=== PATIENT | female | born 1935 | race Caucasian/White ===

== ENCOUNTER → 2020-05-12 08:38 | Outpatient (CLI) | payer MEDICARE, SELFPAY ==
--- NOTE | ~2020-05-12 | MMUS_ITS ---
EXAMINATION: MM diagnostic mammo unilat LT, US breast LT limited HISTORY: Six-month follow-up of probably benign multilocular up to 5.6 cm cyst at 3:00 4 cm from nipp le TECHNIQUE: 3-D tomosynthesis images of the left breast were performed and synthetic 2-D images were g enerated. CAD analysis was submitted and interpreted. High resolution targeted 3:00 left breast ultra sound was performed. COMPARISON: 08/23/2019 diagnostic left mammogram and limited left breast ultrasound examination BREAST PARENCHYMAL COMPOSITION: There are scattered areas of fibroglandular density. FINDINGS: MAMMOGRAPHIC FINDINGS: No significant interval change is noted of a low-density circumscribed opacity of approximately 5 mm dimension in the outer mid left breast. ULTRASOUND: At 3:00 there is a 3 x 5.5 mm circumscribed septated cyst, stable in appearance since 08/06/2019. IMPRESSION: 1. No mammographic evidence of malignancy 2. Routine mammographic screening is recommended BI-RADS Category 2: Benign finding(s). Reviewed, dictated and finalized at location A. IMPRESSION: 1. No mammographic evidence of malignancy 2. Routine mammographic screening is recommended BI-RADS Category 2: Benign finding(s).
== END ==
PROVIDERS: Visit Provider Family Medicine
DX: R92.8 Other abnormal and inconclusive findings on diagnostic imaging of breast (principal)
CPT/HCPCS: 76642; 77065

== ENCOUNTER → 2021-07-26 09:40 | Outpatient (CLI) | payer MEDICARE, SELFPAY ==
--- NOTE | ~2021-07-26 | MM_ITS ---
EXAMINATION: MM screening alecia BI w valentino HISTORY: Screening TECHNIQUE: Craniocaudal and mediolateral oblique 3-D tomosynthesis images were obtained and synthetic 2-D images were generated. CAD analysis was submitted and interpreted. COMPARISON: Comparison to multiple prior studies sequentially, with oldest reviewed study dated 06/07. BREAST PARENCHYMAL COMPOSITION: Breast composed of scattered areas of fibroglandular density. FINDINGS: The right breast is stable without evidence for malignancy. There is a developing asymmetry in the medial aspect of the left breast at approximately 9:00 position. IMPRESSION: 1. Developing left breast asymmetry. 2. Additional mammographic views and possible breast ultrasound are recommended. BI-RADS Category 0: Incomplete: Needs additional imaging evaluation. Reviewed, dictated and finalized at location A. IMPRESSION: 1. Developing left breast asymmetry. 2. Additional mammographic views and possible breast ultrasound are recommended . BI-RADS Category 0: Incomplete: Needs additional imaging evaluation.
--- NOTE | ~2021-07-26 | DEXA_ITS ---
Bone Density Report Name: Yasmine Diaz Age: 85 Sex: Female Ethnicity: White Date of : 1935 Indication: postmenopausal osteoporosis; height loss; Referring Provider: CHARLIE TEJADA Study: Bone densitometry was performed. Exam Date: July 26, 2021 Accession number: [id number] Bone Density: Region BMD T-score Z-score Classification AP Spine (L1-L4) 0.676 -3.4 -0.5 Osteoporosis Femoral Neck (Left) 0.579 -2.4 0.1 Osteopenia Total Hip (Left) 0.639 -2.5 -0.1 Osteoporosis Femoral Neck (Right) 0.534 -2.8 -0.3 Osteoporosis Total Hip (Right) 0.613 -2.7 -0.4 Osteoporosis Total Hip Mean 0.626 -2.6 -0.3 Osteoporosis World Health Organization criteria for BMD impression classify patients as: Normal (T-score at or above -1.0), Osteopenia (T-score between -1.0 and -2.5), or Osteoporosis (T-score at or below -2.5). 10-year Fracture Risk: FRAX not reported because: Some T-score for Spine Total or Hip Total or Femoral Neck at or below -2.5 Previous Exams: Region Exam Age BMD T-score BMD Change BMD Change Date g/cm2 vs Baseline vs Previous AP Spine(L1-L4) 07/26/2021 85 0.676 -3.4 -0.062* -0.071* 06/12/2019 83 0.747 -2.7 0.010 0.010 05/25/2016 80 0.738 -2.8 Total Hip(Left) 07/26/2021 85 0.639 -2.5 -0.068* -0.047* 06/12/2019 83 0.685 -2.1 -0.022 -0.022 05/25/2016 80 0.707 -1.9 Total Hip(Right) 07/26/2021 85 0.613 -2.7 -0.067* -0.024 06/12/2019 83 0.637 -2.5 -0.043* -0.043* 05/25/2016 80 0.680 -2.1 *Denotes significance at 95% confidence level, LSC for AP Spine = 0.022 g/cm2, LSC for Total Hip = 0.027 g/cm2 Clinical Information Provided by Patient: Patient maximum height was 63.75 Menopause Age: 55 Drinks caffeinated beverages Onset of menses at age 13 Number of children 2 Impression: The patient has osteoporosis, based on the Total Spine T-score. The BMD for the AP Spine(L1-L4) decreased, changing by -0.071 since the last DXA exam. The BMD for the Total Hip(Left) decreased, changing by -0.047 since the last DXA exam. Discussion: INCREASED RISK OF FRACTURE. BONE DENSITY IS UNDESIRABLY LOW AT ONE OR MORE SKELETAL SITES, CONSISTENT WITH POSTMENOPAUSAL OSTEOPOROSIS. This patient's lowest T-score meets the World Health Organization's (WHO) criteria for osteoporosis at one or more sites (T-score -2.5 or below). In
== END ==
PROVIDERS: PCP Family Medicine; Visit Provider Family Medicine
DX: Z12.31 Encounter for screening mammogram for malignant neoplasm of breast (principal); Z78.0 Asymptomatic menopausal state; M81.0 Age-related osteoporosis without current pathological fracture; Z85.3 Personal history of malignant neoplasm of breast; R92.8 Other abnormal and inconclusive findings on diagnostic imaging of breast; M85.852 Other specified disorders of bone density and structure, left thigh
CPT/HCPCS: 77063; 77067; 77080

== ENCOUNTER → 2021-08-23 08:10 | Outpatient (CLI) | payer MEDICARE, SELFPAY ==
--- NOTE | ~2021-08-23 | MMUS_ITS ---
EXAMINATION: MM diagnostic alecia LT w valentino, US breast LT limited HISTORY: Developing asymmetry reported in medial left breast at approximately 9:00 position on 021 screening mammogram TECHNIQUE: Additional 3-D tomosynthesis images of the left breast were performed and synthetic 2-D im ages were generated. CAD analysis was submitted and interpreted. High resolution targeted left 3:00 b reast ultrasound was performed. COMPARISON: 07/26/2021 bilateral screening mammogram 05/12/2020 diagnostic left mammogram and limited left breast ultrasound 08/06/2019 diagnostic left mammogram and limited left breast ultrasound FINDINGS: MAMMOGRAPHIC FINDINGS: No reproducible mass or architectural distortion is noted in the medial aspect of the left breast on these supplemental views. ULTRASOUND: 3:00: 3.5 x 5.2 x 5 mm septated benign-appearing cyst without internal vascularity or posterior shado wing. IMPRESSION: 1. Benign finding 2. Routine mammographic screening is recommended BI-RADS Category 2: Benign finding(s). Reviewed, dictated and finalized at location A. 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 Benign finding 2. Routine mammographic screening is recommended BI-RADS Category 2: Benign finding(s).
== END ==
PROVIDERS: PCP Family Medicine; Visit Provider Family Medicine
DX: R92.8 Other abnormal and inconclusive findings on diagnostic imaging of breast (principal)
CPT/HCPCS: 76642; 77061; 77065; G0279

== ENCOUNTER → 2023-08-01 12:46 | Outpatient (CLI) | payer MEDICARE, SELFPAY ==
--- NOTE | ~2023-08-01 | DEXA_ITS ---
Bone Density Report Name: JENNIFER BLOUNT Age: 88 Sex: Female Ethnicity: White Date of : 1935 Indication: postmenopausal osteoporosis; height loss; Referring Provider: Kvng Onofre Study: Bone densitometry was performed. Exam Date: August 01, 2023 Accession number: [id number] Bone Density: Region BMD T-score Z-score Classification AP Spine (L1-L4) 0.685 -3.3 -0.4 Osteoporosis Femoral Neck (Left) 0.568 -2.5 0.0 Osteoporosis Total Hip (Left) 0.610 -2.7 -0.4 Osteoporosis Femoral Neck (Right) 0.526 -2.9 -0.4 Osteoporosis Total Hip (Right) 0.598 -2.8 -0.5 Osteoporosis Total Hip Mean 0.604 -2.8 -0.5 Osteoporosis World Health Organization criteria for BMD impression classify patients as: Normal (T-score at or above -1.0), Osteopenia (T-score between -1.0 and -2.5), or Osteoporosis (T-score at or below -2.5). 10-year Fracture Risk: FRAX not reported because: Some T-score for Spine Total or Hip Total or Femoral Neck at or below -2.5 Previous Exams: Region Exam Age BMD T-score BMD Change BMD Change Date g/cm2 vs Baseline vs Previous AP Spine(L1-L4) 08/01/2023 88 0.685 -3.3 -0.053* 0.009 07/26/2021 85 0.676 -3.4 -0.062* -0.071* 06/12/2019 83 0.747 -2.7 0.010 0.010 05/25/2016 80 0.738 -2.8 Total Hip(Left) 08/01/2023 88 0.610 -2.7 -0.097* -0.029* 07/26/2021 85 0.639 -2.5 -0.068* -0.047* 06/12/2019 83 0.685 -2.1 -0.022 -0.022 05/25/2016 80 0.707 -1.9 Total Hip(Right) 08/01/2023 88 0.598 -2.8 -0.082* -0.014 07/26/2021 85 0.613 -2.7 -0.067* -0.024 06/12/2019 83 0.637 -2.5 -0.043* -0.043* 05/25/2016 80 0.680 -2.1 *Denotes significance at 95% confidence level, LSC for AP Spine = 0.022 g/cm2, LSC for Total Hip = 0.027 g/cm2 Clinical Information Provided by Patient: Patient maximum height was 63.75 Menopause Age: 55 Does not regularly consume dairy products Drinks caffeinated beverages Onset of menses at age 13 Number of children 2 Impression: The patient has osteoporosis, based on the Total Spine T-score. The BMD for the Total Hip(Left) decreased, changing by -0.029 since the last DXA exam. Discussion: INCREASED RISK OF FRACTURE. BONE DENSITY IS UNDESIRABLY LOW AT ONE OR MORE SKELETAL SITES, CONSISTENT WITH POSTMENOPAUSAL OSTEOPOROSIS. This adriel
--- NOTE | ~2023-08-01 | MM_ITS ---
EXAMINATION: MM screening alecia BI w valentino HISTORY: Screening TECHNIQUE: Craniocaudal and mediolateral oblique 3-D tomosynthesis images were obtained and synthetic 2-D images were generated. CAD analysis was submitted and interpreted. COMPARISON: Comparison to multiple prior studies sequentially, with oldest reviewed study dated 06/07. BREAST PARENCHYMAL COMPOSITION: There are scattered areas of fibroglandular density. FINDINGS: There is no evidence of suspicious mass, calcification, or architectural distortion to sugg est malignancy in either breast. There has been no suspicious interval change. IMPRESSION: 1. No mammographic evidence of malignancy. 2. Recommend routine screening mammography in one year. BI-RADS Category 1: Negative Reviewed, dictated and finalized at location A. AVER
== END ==
PROVIDERS: PCP Family Medicine; Visit Provider Physician Assistant
DX: Z12.31 Encounter for screening mammogram for malignant neoplasm of breast (principal); Z85.3 Personal history of malignant neoplasm of breast; M81.0 Age-related osteoporosis without current pathological fracture
CPT/HCPCS: 77063; 77067; 77080

== ENCOUNTER 2024-04-16 08:45 | Outpatient (RCR) | payer MEDICARE, SELFPAY | END 2024-04-23 09:27 | disposition home or self-care (01) | LOC: ANHCPREHAB 08:45 | PROVIDERS: PCP Family Medicine | DX: Z95.2 Presence of prosthetic heart valve (principal) | CPT/HCPCS: 93798 ==

== ENCOUNTER 2025-06-24 12:39 | Emergency (ER) | payer MEDICARE, SELFPAY ==
--- OUTSIDE RECORDS SUMMARY | 2001-10-13 19:00 | XMS_ITS | Continuity of Care Document ---
Author Organization [facility] Address [address] [place] [address] [place] [address] Phone Care Team Providers Care Box Spring Maker Name Role Phone [facility] Unavailable Unavail able Ela Bloom Unavailable Unavailable Advance Directives Directive Yes / No Effective Date File Name No Information Encounters Encounter Description Practice Location Reason(s) For Visit Diagnoses Date Provider Providers Copied on Encounter [facility], [id number] [place] [address] [address], [place], [place], [id number], [place] tel:[phone] [facility] No Information [address] [facility] [facility], [address], [place], [place], [id number] , [place]. [phone] Referring Provider: Francia Ryder MD L, [address] [facility], [place], [address]. tel:[phone] g Provider: Ela Bloom, [address] [place] [address], [address]. tel:[phone] Family History Family Member Type Diagnosis Age At Onset No Information Payers Payer name Insurance type Covered constitution party ID Authoriza tion(s) No Information Social History Type Description Quantity Date Captured Comments Sex Female Smoking Status No Information Chief Complaint And Reason For Visit No Information Reason For Referral Reason For Referral No Information History Of Present Illness Encounter Date Complaint History Of Prese nt Illness No Information Functional Status Date Functional Assessmen t No Information Instructions Date Instruction Additional Infor mation No Information Assessments Type Assessment Date No Information Patient Care Teams Name Effective Dates (start - stop) Status Members No Information
--- OUTSIDE RECORDS SUMMARY | 2013-03-05 05:50 | XMS_ITS | Continuity of Care Document ---
Author Organization [facility] Address [address] [place] [address] Phone Care Team Providers Care Recreation Aide Name Role Phone Nacho SPEAR, Guerita Unavailable Unavailabl e Allergies, Adverse Reactions, Alerts Substance Reaction Status Criticality No Known allergies Medications Medication Instructions Dosage Effective Dates (start - stop) Status Comments Claritin 10 mg Tab take 1 tablet (10MG) by oral routAM - Active Arimidex 1 mg Tab take 1 tablet (1MG) by oral route every day 1 MG - Active Effexor XR 37.5 mg 24 hr Cap take 1 capsule (37.5MG) by oral route every day with food 37.5 MG - No Longer Active Procedures Procedure Date OFFICE/OUTPATIENT VISIT EST OFFICE/OUTPATIENT VISIT, EST OFFICE/OUTPATIENT VISIT, EST OFFICE/OUTPATIENT VISIT, EST OFFICE/OUTPATIENT VISIT, NEW Advance Directives Directive Yes / No Effective Date File Name Resuscitation Not Answered N/A N/A Life Support Not Answered N/A N/A Intubation Not Answered N/A N/A Antibiotics Not Answered N/A N/A IV Fluid Support Not Answered N/A N/A Tube Feed Not Answered N/A N/A Other Directive N/A N/A WARNING:The information contained in this section is historical and is provided for information only and does not constitute a legal document or any assurance that the information is still accurate. Please verify the information with the osman of the legal document before using it for clinical purposes. Encounters Encounter Description Practice Location Reason(s) For Visit Diagnoses Date Provider Providers Copied on Encounter OFFICE/OUTPA TIENT VISIT EST [facility] , [address], [place], [address], [place] tel:[phone] [facility] swelling on her face (chief complaint) Angioneurotic edema, not elsewhere classified 2-201 3 Nacho Hamsa. [address], [place], [place], [id number]. tel:[phone] OFFICE/OUTPA TIENT VISIT, EST [facility] , [address], [place], [address], [place] tel:[phone] [facility] skin test for angioedema (chief complaint) Angioneurotic edema, not elsewhere classified 3- 2 Nacho Hamsa. [address], [place], [place], [id number]. tel:[phone] OFFICE/OUTPA TIENT VISIT, EST [facility] , [address], [place], [address], [place] tel:[phone] [facility] angioedema (chief complaint) Angioneurotic edema, not elsewhere classified 4-201 1 Nacho Hamsa. [address], [place], [place], [id number]. tel:[phone] OFFICE/OUTPA TIENT VISIT, EST [facility] , [address], [place], [address], [place] tel:[phone] [facility] swollen (chief complaint) Angioneurotic edema, not elsewhere classified 0-201 1 Nacho Hamsa. [address], [place], [place], [id number]. tel:[phone] OFFICE/OUTPA TIENT VISIT, NEW [facility] , [address], [place], [address], [place] tel:[phone] [facility] agioedema (chief complaint) Angioneurotic edema, not elsewhere classified 9-201 1 Nacho Hamsa. [address], [place], [place], [address]. tel:[phone] Family History Family Member Type Diagnosis Age At Onset No Information Payers Payer name Insurance type Covered constitution party ID Authormargarita barber(s) No Information Social History Type Description Quantity Date Captured Comments Alcohol Use Details Unknown Caffeine Use Details Unknown Tobacco Use Status No Information Smoking Status Never smoker Non-Smoking Tobacco Use Details : No Details Available : No Details Available Sex Female Vital Signs Date / Time: Height Weight BMI Pulse Rate Blood Pressure Temperature Respiratory Rate Body Surface Area Head Circumference Head Circ. Percentile Wt./David. Percentile BMI percentile Pulse Ox Inhaled Ox 10:50 AM 63.00 in 162.00 lbs 28.6 9 kg/m eter (2) 99 /min 130/68 mm[Hg] 97.90 F 95 % Chief Complaint And Reason For Visit From encounter dated '03/05/2013 10:50'. swelling on her face (chief complaint) Reason For Referral Reason For Referral No Information History Of Present Illness Encounter Date Complaint History Of Prese nt Illness No Information Functional Status Date Functional Assessmen t No Information Instructions Date Instruction Additional Infor mation No Information Assessments Type Assessment Date No Information Mental Status Date Cognitive Assessment Orientation - [place] ed to time, place, person, situation. Patient Care Teams Name Effective Dates (start - stop) Status Members No Information
--- NOTE | ~2025-06-24 | CT_ITS ---
EXAMINATION: CT facial bones w con DATE: 06/24/2025 15:28 INDICATION: Left facial pain TECHNIQUE: Computed tomography (CT) of the facial bones and maxillofacial region was performed with 100 mL Omnipaque-350 intravenous contrast. Coronal reconstructions were obtained. Automated exposure control and iterative reconstruction technique were employed. The dose-length product was 282.73 mGy-c m. COMPARISON: None. FINDINGS: No maxillofacial fractures. Specifically the nasal bones, zygomatic arches, mandible and damon of the orbits and paranasal sinuses are all intact. Nasal septum is midline. Postoperative change of prior left mastoidectomy which includes resection of the posterior most portion of the temporal bone overlying the sigmoid sinus. Small effusion in some of the posterior inferior most residual left mastoid air cells. No left middle ear effusion. The right mastoid air cells and middle ear cavities are clear. Paranasal sinuses are clear. Changes of bilateral intraocular lens replacement. Small amount of nonhe modynamically significant atherosclerotic calcification at the bilateral carotid siphons. Visualized cervical vasculature is unremarkable with patent bilateral A1 and P1 segments. Symmetric prominence of the sulci consistent with mild age- appropriate diffuse cerebral volume loss. Bilateral parotid and submandibular glands as well as the visualized thyroid appears normal. No or abnormally enhancing lesions, masses or fluid collections identified. Severe cervical spondylosis with chronic appearing mild anterior wedging at C5. IMPRESSION: 1. Status post left mastoidectomy and bilateral intraocular lens replacement. Otherwise unremarkable maxillofacial CT. Reviewed, dictated and finalized at location A. IMPRESSION: 1. Status post left mastoidectomy and bilateral intraocular lens replacement. O therwise unremarkable maxillofacial CT.
--- NOTE | ~2025-06-24 | CT_ITS ---
EXAMINATION: CT brain wo kiera, 06/24/2025 15:05 CDT HISTORY: Left facial pain COMPARISON: No comparisons available. Technique: Axial images obtained of the brain without contrast. One or more of the following dose reduction techniques were used: automated exposure control, adjustment of the mA and/or kV according to patient size, use of iterative reconstruction technique. Findings: No acute infarct or parenchymal hemorrhage. No abnormal mass or mass effect. No midline shift. No extra-axial fluid collections. No hydrocephalus. The left mastoid air cells demonstrates sequelae of previous surgery, the right mastoid air cells appear unremarkable Sinuses and orbits unremarkable. No acute fracture. No significant facial or scalp soft tissue swelling evident. No radiopaque foreign body is seen. Impression: 1.No acute intracranial abnormality. Reviewed, dictated and finalized at location P. Impression: 1.No acute intracranial abnormality.
--- OUTSIDE RECORDS SUMMARY | 2025-06-24 12:43 | XMS_ITS | Clinical Summary ---
Author Organization [facility] [address] Address [address] [facility] [place] [address] Care Team Providers Care Floorperson Name Role Phone Gina Delacruz MD Primary Care Provider + Leighton Ramirez MD Unavailable [phone] Le Mendoza MD Unavailable [phone] Allergies Active Allergy Reactions Criticality Noted Date Comments House Dust Unknown 05/26/2021 Mite Extract Unknown 05/26/2021 Raspberry Rash Medium Medications aspirin 81 mg chewable tablet Take 1 tablet (81 mg total) by mouth daily 30 tablet 11 4 Active amLODIPine (NORVASC) 2.5 mg tablet Take 1 tablet (2.5 mg total) by mouth daily Active amoxicillin-cla vulanate (AUGMENTIN) 875-125 mg per tablet Take 1 tablet (875 mg of amoxicillin total) by mouth 2 (two) times a day for 7 days 14 tablet 5 06/27/20 25 Active Active Problems Problem Noted Date Diagnosed Date Status post transcatheter ao rtic valve replacement (TAVR) using bioprosthesis 12/24/2023 Assessment & Plan (12/18/2024 2:23 PM CDT): S/p TAVR 1 year ago. The valve is functioning well. No additional TAVR follow up scheduled Assessment & Plan (01/29/2024 10:27 AM CDT): S/p TAVR 1 month ago. The valve is functioning well. We will plan to see the patient back for a 1 year TAVR follow up. Encounter for examination fo r normal comparison and control in clinical research program 12/07/2023 Nonrheumatic aortic valve stenosis 05/26/2021 WALTER (dyspnea on exertion) 05/26/2021 Fatigue due to excessive exertion 05/26/2021 Syncope and collapse 05/26/2021 Pseudophakia of both eyes 04/04/2021 Assessment & Plan (02/29/2024 2:26 PM CDT): Patient was educated on the intraocular lens (IOL) status. Follow. Cont with current glasses Rx Assessment & Plan (01/11/2023 9:35 AM CDT): Open capsules, good vision, monitor Assessment & Plan (01/05/2022 9:38 AM CDT): Open capsules, good vision, monitor Assessment & Plan (04/04/2021 11:27 AM CDT): Centered and stable, monitor Bilateral posterior capsular opacification 04/04 Assessment & Plan (05/09/2021 2:58 PM CDT): S/p YAG OU Doing well MRx to 20/20 today Follow [address] Rizvi Assessment & Plan (04/14/2021 12:58 PM CDT): PCO referral from Dr. 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 Medical [facility] Cardiology [address] [place] [address] Stanford Senior MD PhD 06/05/2025 8:40 AM CDT - 06/05/2025 9:45 AM CDT Surgery [facility] Heart [address] [address] Jeffrey Cotton MD Intracardiac Echo Primary Procedure 06/05/2025 7:23 AM CDT - 06/05/2025 4:15 PM CDT Hospital Encounter [facility] Heart [address] [address] Jeffrey Cotton MD Nonrheumatic aortic valve stenosis Discharge Disposition: Discharge to home or self care 04/28/2025 8:05 AM CDT Anesthesia Event [facility] Heart [address] [address] Buddy Gordillo MD 04/28/2025 6:46 AM CDT - 04/28/2025 11:59 PM CDT Hospital Encounter [facility] Center [address] [place] [phone] Bronson Fulton MD Nonrheumatic aortic valve stenosis (Primary Dx) Discharge Disposition: Discharge to home or self care 04/28/[address] [facility] Medical Group Cardiology [address] [place] [address] Bronson Fulton MD sched ICE 04/27/2025 Documentation [facility] [address] [place] [phone] Rabia Hogan, EFE from Last 3 Months Immunizations Immunization Administration Dates Next Due Influenza, Trivalent, IM (MDV) 06/23/2010 Surgical History Surgery Date Site/Laterality Comments TONSILLECTOMY Tonsillectomy BREAST BIOPSY 09/24/1993 - 09/23/1994 Right IDC BREAST LUMPECTOMY 09/24/1993 - 09/23/1994 Right with SLN CRANIECTOMY FOR EXCISION OF ACOUSTIC NEUROMA EYE SURGERY CATARACT EXTRACTION CARDIAC CATHETERIZATION 11/13/2023 TRANSCATHETER AORTIC VALVE REPLACEMENT 20 Frank CARDIAC ELECTROPHYSIOLOGY PROCEDURE 06/05/2025 N/A Procedure: Intracardiac Echo Primary Procedure; Surgeon: Jeffrey Cotton MD; Location: [facility]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 Family History Medical History Relation Name Comments Coronary artery disease Father Rodríguez nary artery disease; Cause of : Coronary artery disease Prostate cancer Father Cancer -pros verdin; Cataracts Mother Hypertension Mother Hypertension; Other Mother Pulmonary fibro sis; Cause of : Pulmonary fibrosis Other Other 1 Family history of Descent - Western/Northern Eur; Other Other 2 Family history of Descent - Western/Northern Eur; Blindness Neg Hx Relation Name Status Comments Father (Age 100) Mother (Age 83) Other 1 Other 2 Social History Tobacco Use Types Packs/Day Years Used Date Smoking Tobacco: Never Smokeless Tobacco: Never Tobacco Cessation:Counseling Given: No Alcohol Use Standard Drinks/Week Comments Yes 0 (1 standard drink = 0.6 oz pur e alcohol) Personal Safety Answer Date Recorded Have you ever been in or are you currently in a harmful physical or emotional relationship or is someone making you feel afraid or unsafe? 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 Gender Identity Not on file Sexual Orientation Not on file Obstetrics History Last Filed Vital Signs Vital Sign Reading Time Taken Comments Blood Pressure 121/57 06/05/2025 12:00 PM CDT Pulse 69 06/05/2025 12:00 PM CDT Temperature 36.5 C (97.7 F) 04/28/2025 8:28 AM CDT Respiratory Rate 26 06/05/2025 11:30 AM CDT Oxygen Saturation 100% 06/05/2025 12:00 PM CDT Inhaled Oxygen Concentration - - Weight 60.3 kg (133 lb) 06/05/2025 7:57 AM CDT Height 160 cm (5' 3) 06/05/2025 7:57 AM CDT Body Mass Index 23.56 06/05/2025 7:57 AM CDT Plan of Treatment Health Maintenance Due Date Last Done Comments Depression Screening 1935 Hepatitis B Screening 1953 Well Visit 65+ 2000 DTaP/Tdap/Td Vaccine (1 - Tdap) 10/03/2012 3 Osteoporosis Screening-Bone Density Scan 04/16/2015 04/16/2013 Influenza Vaccine (#1) 2025 , 07/20/2020, 06/04/2019, Additional history exists Fall Risk Assessment 04/28/2026 04/28/2025 Pneumococcal vaccine 65+ Completed 06/26/2017, 10/26 Zoster Vaccine Completed 05/03/2019, 01/22, 06/24/2014 Medical Devices Implanted Type Area Ramp Supervisor Device Identifier Shelf Expiration Date Model / Serial / Lot Frank [employer] Valve Heart 20mm Gary 3 Transcatheter [id number] - [id number] - [id number] Implanted:Qty: 1 on 12/20/2023 by Jeffrey Cotton MD at [facility] Prosthetic Valve N/A: Aortic Valve Frank [employer] 07/30/2026 [id number] / [id number] / [id number] [employer] Device Vascular Closure Femoral Artery Bioabsorbable Dual Method Vascade 6-7fr Collagen [id number] - S0 - [id number] Implanted:Qty: 1 on 11/13/2023 by Jeffrey Cotton MD at [facility] Vascular Closure Device Right: Femoral Vein [employer] 06/28/2025 [id number] / 0 / [id number] Cordis Mynxgrip 5fr Balloon Catheter Integrate Sealant Lock Latex Free [id number] - S0 - [id number] Implanted:Qty: 1 on 11/13/2023 by Jeffrey Cotton MD at [facility] Vascular Closure Device Right: Femoral Cordis 09/23/2025 [id number] / [id number] / [id number] [employer] 18f Manta Vascular Closure Device 2115 - [id number] - [id number] Implanted:Qty: 1 on 12/20/2023 by Jeffrey Cotton MD at [facility] Vascular Closure Device N/A: Aortic Valve [employer] Inc 01/01/20255 / [id number] / [id number] [employer] Device 5fr Closure Celt Acd Vascular Sterile Latex Free Disposable Bryce Kclt-05 - [id number] - [id number] Implanted:Qty: 1 on 12/20/2023 by Jeffrey Cotton MD at [facility] Vascular Closure Device N/A: Aortic Valve [employer]TD 06/27/2026 KCLT-05 / [id number] / [id number] Bourne Vascular System Closure Repair Femoral Artery Suture Mediated Perclose Prostyle [id number] - S0 - [id number] Implanted:Qty: 1 on 06/05/2025 by Jeffrey Cotton MD at [facility] Vascular Closure Device Right: Femoral [employer]ne [employer] 04/23/2027 [id number] / [id number] / [id number] Procedures Procedure Name Priority Date/Time Associated Diagnosis Comments INTRACARDIAC ECHO PRIMARY PROCEDURE Routine 06/05/2025 9:05 AM CDT Nonrheumatic aortic valve stenosis EGFR STAT 06/05/2025 7:47 AM CDT DIFFERENTIAL AUTO STAT 06/05/2025 7:4 7 AM CDT PROTIME-INR STAT 06/05/2025 7:47 AM CDT CBC WITH AUTO DIFFERENTIAL STAT 06/05/2025 7:47 AM CDT BASIC METABOLIC PANEL STAT 06/05/2025 7:47 AM CDT TRANSESOPHAGEAL ECHO (LAILA) WO DOPPLER/CF W CARDIOVERSION W CONTRAST Routine 04/28/2025 8:44 AM CDT Nonrheumatic aortic valve stenosis TRANSESOPHAGEAL ECHO (LAILA) WO DOPPLER/CF W CARDIOVERSION Routine 04/28/2025 8:44 AM CDT Nonrheumatic aortic valve stenosis TRANSESOPHAGEAL ECHO (LAILA) W LTD DOPPLER/CF W CARDIOVERSION W CONTRAST Routine 04/28/2025 8:44 AM CDT Nonrheumatic aortic valve stenosis TRANSESOPHAGEAL ECHO (LAILA) W LTD DOPPLER/CF W CARDIOVERSION Routine 04/28/2025 8:44 AM CDT Nonrheumatic aortic valve stenosis TRANSESOPHAGEAL ECHO (LAILA) W DOPPLER/CF W CARDIOVERSION W CONTRAST Routine 04/28/2025 8:44 AM CDT Nonrheumatic aortic valve stenosis TRANSESOPHAGEAL ECHO (LAILA) W DOPPLER/CF W CARDIOVERSION Routine 04/28/2025 8:44 AM CDT Nonrheumatic aortic valve stenosis DEXA AXIAL SKELETON BONE DENSITY 1 OR MORE SITES Routine 04/16/2013 12:26 PM CDT from Last 3 Months or Most Recently Relevant to Health Maintenance Results * INTRACARDIAC ECHO PRIMARY PROCEDURE (06/05/2025 9:05 AM CDT) Anatomical Region Laterality Modality X-Ray Angiograph y Narrative 06/05/2025 9:12 AM CDT Images from the original result were not included. [facility] Cardiology [facility] [facility], [id number], [address] Intracardiac Echocardiogram Procedure Report 89 y.o. year old female with aortic perivalvular leak referred for intracardiac echocardiogram. Attending physicians: Jeffrey Cotton MD Access: 10F RFV Catheter: ICE Injection:None Closure:Perclose Anticoagulation:None Air Kerma:7 mGy Fluoro time:1.3 min Contrast: None Sedation:1mg Versed, 25mcg Fentanyl Estimated blood Loss: minimal Preprocedural Diagnosis: Aortic perivalvular regurgitation Postprocedural Diagnosis: Aortic perivalvular regurgitation, tricuspid regurgitation, mitral regurgitation Procedural details: After risks, benefits, and alternatives to the procedure were explained to the patient, they agreed to proceed. After signing informed consent the patient was brought to the cardiac catheterization laboratory/hybrid OR. They were prepped and draped in sterile fashion. A 10F sheath was inserted into the right femoral vein using the modified Seldinger technique, micropuncture access, and ultrasound guidance. This was was preclosed with one Perclose device. We then advanced the ICE catheter. Findings: Left ventricle: Grossly normal ejection fraction 55% Right ventricle: Grossly normal function Aortic valve: Normal bioprosthetic aortic valve with moderate to severe perivalvular leak Mitral valve: Moderate regurgitation Tricuspid valve: Moderate to severe regurgitation Pulmonic valve: Not well visualized Left atrial appendage: No evidence of thrombus Atrial septum: Intact Pericardium: Normal, no pericardial effusion The system was removed and the access site was closed with the perclose sutures. There was no pericardial effusion noted at end of case. A/P: Successful ICE evaluation. We will review with heart team to determine next steps. Jeffrey Cotton MD 06/05/25 9:08 AM us Jeffrey Cotton MD CV CARDIAC CATH PROCEDURES Final Result * eGFR (06/05/2025 7:47 AM CDT) eGFR 84 >=60 mL/min/1. 73 m2 Comment: Interpretive Data Reference Interval Normal >/= 90 mL/min/1.73m2 Mildly decreased* 60 - 89 mL/min/1.73m2 Mildly to moderately decreased 45 - 59 mL/min/1.73m2 Moderately to severely decreased 30 - 44 mL/min/1.73m2 Severely decreased 15 - 29 mL/min/1.73m2 Kidney Failure < 15 mL/min/1.73m2 *Relative to young adult level Estimated glomerular filtration rate is determined by the 2020 CKD-EPI equation recommended by the National Kidney Foundation (A Unifying Approach to GFR Estimation: Recommendations of the NKF-ASK Task Force on Reassessing the Inclusion of Race in Diagnosing Kidney Disease, JASN 2020). The CKD-EPI equation should not be used for patients with unstable renal function and has not been validated in children and those over 70. Current interpretive data was last reviewed 2021. Blood 06/05/2025 7:47 AM CDT 06/05/2025 7:57 AM CDT us Jeffrey Cotton MD LAB BLOOD ORDERABLES Final Resul t [facility] [address] Department [place] [address] * (ABNORMAL) Differential, auto (06/05/2025 7:47 AM CDT) Pathologist [facility] Neutrophil abs 3.47 1.50 - 6.50 K/cumm Imm gran abs 0.02 0.00 - 0.10 K/cumm [facility] Lymphocyte abs 0.77(L) 0.80 - 3.30 K/cumm [facility] Monocyte abs 0.47 0.20 - 0.80 K/cumm [facility] Eosinophil abs 0.14 0.00 - 0.50 K/cumm [facility] Basophil abs 0.07 0.00 - 0.10 K/cumm [facility] Neutrophil pct 70.3 % [facility] Comment: Interpretive Data Percent cell count reference ranges are not reported, since discordance with absolute values may lead to misinterpretation of CBC data. Current Interpretive Data was last revised on 2018. Imm gran pct 0.4 % [facility] Comment: Interpretive Data Percent cell count reference ranges are not reported, since discordance with absolute values may lead to misinterpretation of CBC data. Current Interpretive Data was last revised on 2018. Lymphocyte pct 15.6 % [facility] Comment: Interpretive Data Percent cell count reference ranges are not reported, since discordance with absolute values may lead to misinterpretation of CBC data. Current Interpretive Data was last revised on 2018. Monocyte pct 9.5 % [facility] Comment: Interpretive Data Percent cell count reference ranges are not reported, since discordance with absolute values may lead to misinterpretation of CBC data. Current Interpretive Data was last revised on 2018. Eosinophil pct 2.8 % [facility] Comment: Interpretive Data Percent cell count reference ranges are not reported, since discordance with absolute values may lead to misinterpretation of CBC data. Current Interpretive Data was last revised on 2018. Basophil pct 1.4 % [facility] Comment: Interpretive Data Percent cell count reference ranges are not reported, since discordance with absolute values may lead to misinterpretation of CBC data. Current Interpretive Data was last revised on 2018. Blood 06/05/2025 7:47 AM CDT 06/05/2025 7:57 AM CDT us Jeffrey Cotton MD LAB BLOOD ORDERABLES Final Resul t [facility] [address] Department [place] [address] * (ABNORMAL) CBC with auto differential (06/05/2025 7:47 AM CDT) WBC 4.94 3.80 - 9.90 K/cumm Hgb 13.5 11.9 - 15.5 g/dL [facility] Hct 42.8 35.6 - 45.5 % [facility] Plt 190 150 - 400 K/cumm [facility] MPV 11.2 9.1 - 12.3 fL [facility] RBC 4.65 3.90 - 5.20 M/cumm [facility] MCV 92.0 81.3 - 96.4 fL [facility] MCH 29.0 27.1 - 33.3 pg [facility] MCHC 31.5(L) 32.3 - 35.7 g/dL [facility] RDW CV 13.2 11.1 - 14.9 % [facility] RDW SD 44.7 35.7 - 48.1 fL [facility] NRBC abs 0.00 0.00 - 0.01 K/cumm [facility] Blood 06/05/2025 7:47 AM CDT 06/05/2025 7:57 AM CDT us Jeffrey Cotton MD LAB BLOOD ORDERABLES Final Resul t Performing Organization Address City/[facility] Co de Phone Number [facility] [address] Department [place] [address] * Protime-INR (06/05/2025 7:47 AM CDT) PT 11.4 10.2 - 13.5 sec INR 1.01 0.90 - 1.20 [facility] Comment: Interpretive data Oral anticoagulant therapeutic ranges: Venous thromboembolism prophylaxis or treatment: 2.0-3.0 CARDIOLOGY Standard range: 2.0-3.0 High-intensity range: 2.5-3.5 Refer to indication-specific guidelines for appropriate target ranges for prosthetic heart valve replacement. Current interpretive data was last revised on 2019. Blood 06/05/2025 7:47 AM CDT 06/05/2025 7:57 AM CDT us Jeffrey Cotton MD LAB BLOOD ORDERABLES Final Resul t Performing Organization Address City/[facility]/ZIP Co de Phone Number [facility] [address] Department [place] [address] * Basic metabolic panel (06/05/2025 7:47 AM CDT) Sodium 141 135 - 145 mmol/L Potassium, pl 3.8 3.3 - 4.9 mmol/L [facility] Chloride 104 97 - 110 mmol/L [facility] CO2 24 22 - 32 mmol/L [facility] Anion gap 13 2 - 15 mmol/L [facility] BUN 21 6 - 25 mg/dL [facility] Creatinine 0.65 0.60 - 1.10 mg/dL [facility] Glucose 97 70 - 199 mg/dL [facility] Comment: Interpretive Data Fasting glucose >/= 126 mg/dl is diagnostic for diabetes. Fasting is defined as no caloric intake for at least 8 hours. Fasting glucose between 100 mg/dl to 125 mg/dl is diagnostic of prediabetes. In a patient with classic symptoms of hyperglycemia or hyperglycemic crisis, a random glucose >/= 200 mg/dl is diagnostic for diabetes. In the absence of unequivocal hyperglycemia, results should be confirmed by repeat testing. The classification and Diagnosis of Diabetes Diabetes Care 2021; 46: S19-S40. Current interpretive data was last revised 2022. Calcium 10.0 8.5 - 10.3 mg/dL [facility] Blood 06/05/2025 7:47 AM CDT 06/05/2025 7:57 AM CDT Jeffrey Cotton MD LAB BLOOD ORDERABLES Final [facility]ul [facility] [address] Department [place] [address] * TRANSESOPHAGEAL ECHO (LAILA) W DOPPLER/CF W CARDIOVERSION, TRANSESOPHAGEAL ECHO (LAILA) W DOPPLER/CF W CARDIOVERSION W CONTRAST, TRANSESOPHAGEAL ECHO (LAILA) W LTD DOPPLER/CF W CARDIOVERSION, TRANSESOPHAGEAL ECHO (LAILA) W LTD DOPPLER/CF W CARDIOVERSION W CONTRAST, TRANSESOPHAGEAL ECHO (LAILA) WO DOPPLER/CF W CARDIOVERSION, TRANSESOPHAGEAL ECHO (LAILA) WO DOPPLER/CF W CARDIOVERSION W CONTRAST (04/28/2025 8:44 AM CDT) Anatomical Region Laterality Modality Echocardiography Narrative 04/28/2025 8:44 AM CDT Bronson Fulton MD 04/28/2025 8:49 AM Transesophageal Echocardiogram (LAILA) Date/Time: 04/28/2025 8:44 AM Performed by: Bronson Fulton MD Authorized by: Bronson Fulton MD us Bronson Fulton MD CV ECHO PROCEDURES Vidya l Result * DEXA Axial Skeleton Bone Density Multi Site (04/16/2013 12:26 PM CDT) Anatomical Region Laterality Modality Body N/A Radiographic Cheri ging 04/16/2013 12:2 6 PM CDT Narrative 04/16/2013 1:21 PM CDT Bone mineral density [facility] Clinical History: Postmenopausal female currently taking calcium and vitamin D. DXA BMD was done at [facility] on a Closely CI. Precision testing at this site has resulted in a least significant change of: Lumbar spine 0.035 g/sq cm Hip 0.025 g/sq cm BMD L1-L4 is 0.794 g/sq cm corresponding to a T score of -2.3. BMD left femoral neck is 0.629 g/sq cm corresponding to a T score of -2.0. BMD total left hip is 0.719 g/sq cm corresponding to a T score of -1.8. COMPARISON: When comparison is made with prior bone densitometry dated 03/11/2009, there has been 5.6 percent interval decrease in total bone mineral density of the lumbar spine and 8 percent interval increase in total bone mineral density of the left hip. IMPRESSION: Low bone mass (osteopenia) which depending on the clinical circumstances may result in a moderate increased risk of fragility fracture. If followup is to be done, for technical reasons, it should be performed on this same machine. Radiologist: CESILIA TENORIO M.D. Attending: TEOFILO JONES M.D. Requesting: TEOFILO JONES M.D. Requesting Completed Time: 04/16/2013 12:26 AM Dictated Time: 04/16/2013 1:17 PM Transcribed Time: 04/16/2013 1:21 PM Signed by: CESILIA TENORIO M.D. on 04/16/2013 1:21 PM Procedure Note Provider, MD Rhonda - 01/17/2017 Bone mineral density [facility] Clinical History: Postmenopausal female currently taking calcium and vitamin D. DXA BMD was done at [facility] on a Closely CI. Precision testing at this site has resulted in a least significant change of: Lumbar spine 0.035 g/sq cm Hip 0.025 g/sq cm BMD L1-L4 is 0.794 g/sq cm corresponding to a T score of -2.3. BMD left femoral neck is 0.629 g/sq cm corresponding to a T score of -2.0. BMD total left hip is 0.719 g/sq cm corresponding to a T score of -1.8. COMPARISON: When comparison is made with prior bone densitometry dated 03/11/2009, there has been 5.6 percent interval decrease in total bone mineral density of the lumbar spine and 8 percent interval increase in total bone mineral density of the left hip. IMPRESSION: Low bone mass (osteopenia) which depending on the clinical circumstances may result in a moderate increased risk of fragility fracture. If followup is to be done, for technical reasons, it should be performed on this same machine. Radiologist: CESILIA TENORIO M.D. Attending: TEOFILO JONES M.D. Requesting: TEOFILO JONES M.D. Requesting Completed Time: 04/16/2013 12:26 AM Dictated Time: 04/16/2013 1:17 PM Transcribed Time: 04/16/2013 1:21 PM Signed by: CESILIA TENORIO M.D. on 04/16/2013 1:21 PM Historical Provider MD LUND DXA PROCEDURES Final Result from Last 3 Months or Most Recently Relevant to Health Maintenance Insurance T MEDICARE T MEDICARE T MEDICARE Advance Directives For more information, please contact: [phone] * Full Code (Latest Code Status on File) Date Activated Date Inactivated Comments 12/20/2023 8:12 AM 12/21/2023 8:12 PM * Full Code Date Activated Date Inactivated Comments 11/13/2023 12:01 PM 11/13/2023 7:23 PM Healthcare Agents on File Name Relationship Healthcare Agent Relationship Communication Cinthya Bowden Daughter Health Care Agent Care Teams Floorperson Relationship Specialty Start Date End Date Gina Delacruz MD PCP - General Family Medicine 04/11/18 Leighton Ramirez MD [address] [place] [address] Consulting Physician Cardiothoracic Surgery 11/13/23 Le Mendoza MD [address] [place] [address] Referring Physician Interventional Cardiology 11/14/23
--- OUTSIDE RECORDS SUMMARY | 2025-06-24 12:43 | XMS_ITS | Clinical Summary ---
Author Organization [facility] Address [address] [place] [address] Phone Care Team Providers Care Principal Consulting Engineer Name Role Phone Gina Delacruz MD Primary Care Provider [phone] Active Problems No known active problems Encounters Date Type Department Care Team Description 05/26/2025 External Device Data STL ABSTRACTION Provider, Abstract 05/12/2025 External Device Data STL ABSTRACTION Provider, Abstract 04/29/2025 External Device Data STL ABSTRACTION Provider, Abstract 04/08/2025 External Device Data STL ABSTRACTION Provider, Abstract 04/08/2025 External Device Data STL ABSTRACTION Provider, Abstract 04/08/2025 External Device Data STL ABSTRACTION Provider, Abstract 04/07/2025 External Device Data STL ABSTRACTION Provider, Abstract from Last 3 Months Social History Tobacco Use Types Packs/Day Years Used Date Smoking Tobacco: Never Assessed Comments Unknown Sex and Gender Information Value Date Recorded Sex Assigned at Not on file Legal Sex Female 4:11 AM CHIMNEY MECHANIC Gender Identity Not on file Sexual Orientation Not on file Plan of Treatment Upcoming Encounters Date Type Department Care Team (Late st Contact Info) Description 07/27/2025 11:30 AM CHIMNEY MECHANIC Appointment [facility] Audiology [facility] A [address] [facility] [place] [address] Marry Morrison AU.D [address] [place] [address] Health Maintenance Due Date Last Done Comments DTAP/TDAP/TD VACCINES (1 - Tdap) 1954 PNEUMOCOCCAL VACCINE 50+ YEA RS (1 of 1 - PCV) 1985 RSV VACCINE (60+ or ) (1 - 1-dose 75+ series) 2010 OSTEOPOROSIS SCREENING 04/16/2018 04/16/2013 INFLUENZA VACCINE (#1) 2025 , 08/08/2022, 06/07/2022, Additional history exists COVID-19 Vaccine (3 - 2024-2 6 season) 2025 06/29/2023, 01/18/2022 ZOSTER VACCINE Completed 05/03/2019, 01/22, 06/24/2014 Insurance AETNA PPO MCR Care Teams Principal Consulting Engineer Relationship Specialty Start Date End Date Gina Delacruz MD PCP - General Family Practice 08/16/12
--- OUTSIDE RECORDS SUMMARY | 2025-06-24 12:43 | XMS_ITS | Clinical Summary ---
Author Organization [facility] Address [address] [place] [address] Care Team Providers Care Opener Verifier Packer Customs Name Role Phone Gina Delacruz MD Primary Care Provider [phone] Source Comments [facility],non-owned Affiliates and Associated Physician Practices is amultiple site organization consisting of ambulatory clinics and hospital sitesin [place], [place], [place] and [place]. This disclosure is being madepursuant to the Care Everywhere program and may not contain all information available regarding this patient. Last updated 18.[facility] Allergies Active Allergy Reactions Criticality Noted Date Comments Dust Mite Extract Unknown 05/26/2021 Raspberry Unknown 11/30/2021 Medications * Be aware that medications may not be up to date on this document. Alwaysverify current medications with the patient. Betahistine HCl Compound 12 mg capsules. 1 capsule oral x 1 week, then 1 capsule twice daily oral x 1 week, then 1 capsule three times a day oral, from then on 270 g 3 3 Active Additional Information Patient not taking.Reason: Patient adjusted, Reported on 06/08/2025 clopidogrel (plaVIX) 75 MG tablet Take 1 (one) tablet by mouth once daily 4 Active aspirin (Aspirin) 81 MG chew tablet Take 1 (one) tablet by mouth once daily 4 Active amLODIPine (Norvasc) 2.5 MG tablet Take 1 (one) tablet by mouth once daily 5 Active predniSONE (Deltasone) 10 MG tablet Take 6 tabs for 4 days, 4 for 4 days, 3 for 4 days, 2 for 4 days and 1 for 4 days 64 tablet 3 5 Active Additional Information Patient not taking.Reason: Patient adjusted, Reported on 06/08/2025 Active Problems Problem Noted Date Diagnosed Date WALTER (dyspnea on exertion) 05/26/2021 Fatigue due to excessive exertion 05/26/2021 Nonrheumatic aortic valve stenosis 05/26/2021 Syncope and collapse 05/26/2021 Bilateral posterior capsular opacification 04/04 Overview (06/27/2022): Last Assessment & Plan: S/p YAG OU Doing well MRx to 20/20 today Follow [address] 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, bilateral 09/06/2018 Overview (06/27/2022): Last Assessment & Plan: Excellent vision, few central drusen, montior Continue AREDS supplements Basal cell carcinoma (BCC) of helix of right ear 02/04/2018 Postoperative state 02/07/2014 Overview (03/04/2020): Hx of lumpectomy Unknown and unspecified causes of morbidity 01/22 Overview (03/04/2020): Hx of breast cancer Other seborrheic keratosis 11/09/2010 Resolved Problems Problem Noted Date Diagnosed Date Resolved Date Left ear impacted cerumen 03/04/2020 Encounters Date Type Department Care Team Description 06/08/2025 10:00 AM CDT Office Visit [facility] - ENT [address] [place] [phone] Soham Acosta MD SNHL (sensory-neural hearing loss), asymmetrical (Primary Dx); Bilateral sensorineural hearing loss; Sensorineural hearing loss (SNHL) of both ears; Acoustic neuroma (HCC) 06/08/2025 9:30 AM CDT Testing Visit [facility] - ENT [address] [place] [phone] Ras Mcfarland, PhD SNHL (sensory-neural hearing loss), asymmetrical 06/08/2025 Travel 04/20/2025 Travel from Last 3 Months Immunizations Immunization Administration Dates Next Due INFLUENZA VACCINE, TRIV. (AF LURIA, FLUZONE TRIVALENT; 6MO+) (IIV3) 06/04/2019,06/26/2017,05/16/2016,2013,06/24/2012,11/14/2011,06/23/2010 COVID PFIZER 12+YR 30MCG/0.3mL 06/29/2023 Covid Moderna primary monova lent 12+ yr 0.5mL 11/24/2020 INFLUENZA VACCINE 07/03/2018 INFLUENZA VACCINE, HIGH-DOSE , QUADR. (FLUZONE HIGH-DOSE QUADRIVALENT; 65Y+), 0.7 ML (HD-IIV4) 06/29/2023,08/08/2022,06/07/2022 INFLUENZA VACCINE, HIGH-DOSE , TRIV. (FLUZONE HIGH-DOSE TRIVALENT; 65Y+) (HD-IIV3) 07/03/2018 MODERNA SARS-COV-2 COVID-19 VACCINE 0.25ML 01/18/2022 PNEUMOCOCCAL PPSV23 11/14/2011 Pneumococcal Pcv13 Conj 06/26/2017 TD VACCINE 10/02/2012 ZOSTER VACCINE, LIVE 05/03/2019,02/01/2019,06/24 Zoster Hzv Vacc Recombinant Inj Im 05/03/2019, iNFLUENZA VACCINE, RECOM-HERNANDEZ, QUADR. (FLUBLOCK QUADRIVALENT; 18Y+) (RIV4) 07/20/2021,07/20/2020,06/04/2019 Family History Medical History Relation Name Comments Cancer Father Skin Cancer Hearing Loss - Unspecified Father Hypertension Mother Lung Disease Mother Relation Name Status Comments Father Mother Social History Tobacco Use Types Packs/Day Years Used Date Smoking Tobacco: Never Smokeless Tobacco: Never Tobacco Cessation:Counseling Given: Not Answered Alcohol Use Standard Drinks/Week Comments Yes 1 (1 standard drink = 0.6 oz pur e alcohol) Comments No Sex and Gender Information Value Date Recorded Sex Assigned at Not on file Legal Sex Female 6:03 PM COMPOSITION FLOOR SETTER Gender Identity Not on file Sexual Orientation Not on file Last Filed Vital Signs Vital Sign Reading Time Taken Comments Blood Pressure 125/74 06/08/2025 9:28 AM CDT Pulse 70 06/08/2025 9:28 AM CDT Temperature 36.6 C (97.9 F) 03/04/2020 8:17 AM CDT Respiratory Rate - - Oxygen Saturation 96% 08/10/2023 9:52 AM COMPOSITION FLOOR SETTER Inhaled Oxygen Concentration - - Weight 62.2 kg (137 lb 3.2 oz) 06/08/2025 9:28 A M CDT Height 160 cm (5' 3) 06/08/2025 9:28 AM CDT Body Mass Index 24.3 06/08/2025 9:28 AM CDT Plan of Treatment Upcoming Encounters Date Type Department Care Team (Late st Contact Info) Description 09/07/2025 9:00 AM COMPOSITION FLOOR SETTER Testing Visit [facility] - ENT [address] [place] [phone] Ras Mcfarland, PhD [address] [place] [address] [place] [address] 09/07/2025 9:45 AM COMPOSITION FLOOR SETTER Office Visit [facility] - ENT [address] [place] [phone] Soham Acosta MD [address] [place] [address] [place] [address] Health Maintenance Due Date Last Done Comments Respiratory Syncytial Virus (RSV) Vaccine Pt: or over 60 yrs (1 - 1-dose 75+ series) 2010 DTAP/TDAP/TD VACCINES (2 - Td or Tdap) 10/02/2022 10/02/2012 DEPRESSION SCREENING 09/24/2024 MEDICARE AWV CALENDAR YEAR 2024 COVID-19 VACCINE ( season) 2025 06/29/2023, 08/08/2022, 01/18/2022, Additional history exists INFLUENZA VACCINE (#1) 2025 , 08/08/2022, 06/07/2022, Additional history exists BONE DENSITY TESTING Completed 04/16/2013 PNEUMOCOCCAL VACCINE 50+ Completed 06/26/2017, 10/26 ZOSTER VACCINE Completed 05/03/2019, 04/24, 02/01/2019, Additional history exists HEPATITIS B VACCINE Aged Out No longe r eligible based on patient's age to complete this topic HIB VACCINE Aged Out No longer eligi ble based on patient's age to complete this topic HPV VACCINE Aged Out No longer eligi ble based on patient's age to complete this topic MENINGOCOCCAL (Group B) VACCINE SHARED DECISION-MAKING Aged Out No longer eligible based on patient's age to complete this topic MENINGOCOCCAL GROUPS A/C/Y/W VACCINE Aged Out No longer eligible based on patient's age to complete this topic Procedures Procedure Name Priority Date/Time Associated Diagnosis Comments AUDIOLOGY/TYMPANOME TRY ORDER Routine 06/08/2025 9:52 AM CDT from Last 3 Months Results * AUDIOLOGY/TYMPANOMETRY ORDER (06/08/2025 9:52 AM CDT) Narrative Ras Mcfarland, PhD - 06/08/2025 9:52 AM CDT History: Yasmine Diaz arrived for a hearing evaluation. Patient has a known history of profound hearing loss LT and fluctuating hearing loss RT. She is being seen today to determine if there have been any changes in hearing. Subjectively she has not noticed an improvement in hearing since previous visit. She wears BiCros HERNANDEZ's purchased elsewhere. Results: NO CHANGE IN AIR CONDUCTION SINCE AUDIO 3 MONTH AGO Puretone air conduction testing revealed a mild sloping to severe (SN) hearing loss in the right ear. Speech understanding was poor in that ear; however, improved since February 2025 testing. Recommendations: 1) ENT consult. 2) Re check per medical recommendation, annually, or if a change in hearing is suspected. 3) Continue use of amplification. Ras Mcfarland, Ph.D., [place] Data Center Architect, Director Division of Clinical Audiology Department of Otolaryngology- Head & Neck Surgery [facility] Imbal[facility] Ras Mcfarland PhD AUDIOLOGY SERVICES ORDERABLES Fi nal Result from Last 3 Months Insurance AETNA MEDICARE ADV AETNA AETNA AETNA AETNA AETNA AETNA AETNA AETNA AETNA AETNA AETNA AETNA AETNA AETNA AETNA AETNA AETNA AETNA AETNA Member Subscriber Plan / Payer (Ef fective 2019-) Name:Yasmine Diaz Relation to Subscriber:Self Name:YASMINE DIAZ Payer ID:1 (NA) Type:Medicare-Managed Care Address: [facility] [id number] [place] [phone] AETNA Member Subscriber Plan / Payer (Ef fective 2019-) Name:Yasmine Diaz Relation to Subscriber:Self Name:YASMINE DIAZ Payer ID:1 (NA) Type:Medicare-Managed Care Address: [facility] [id number] [place] [phone] AETNA Member Subscriber Plan / Payer (Ef fective 2019-) Name:Yasmine Diaz Relation to Subscriber:Self Name:YASMINE DIAZ Payer ID:1 (NAIC) Type:Medicare-Managed Care Address: [facility] [id number] [place] [phone] AETNA Member Subscriber Plan / Payer (Ef fective 2019-) Name:Yasmine Diaz Relation to Subscriber:Self Name:YASMINE DIAZ Payer ID:1 (NAIC) Type:Medicare-Pagar.me Care Address: [facility] [id number] [place] [phone] AETNA AETNA AETNA AETNA AETNA AETNA AETNA AETNA Member Subscriber Plan / Payer (Ef fective 2019-) Name:Yasmine Diaz Relation to Subscriber:Self Name:YASMINE DIAZ Payer ID:1 (NAIC) Type:Medicare-Managed Care Address: [facility] [id number] [place] [phone] AETNA AETNA Member Subscriber Plan / Payer (Ef fective 2019-) Name:Yasmine Diaz Relation to Subscriber:Self Name:YASMINE DIAZ Payer ID:1 (NA) Type:Medicare-Managed Care Address: [facility] [id number] [place] [phone] AETNA AETNA AETNA AETNA Member Subscriber Plan / Payer ( fective 2019-) Name:Yasmine Diaz Relation to Subscriber:Self Name:YASMINE DIAZ Payer ID:1 (NAIC) Type:Medicare-Pagar.me Care Address: [facility] [id number] [place] [phone] AETNA AETNA AETNA AETNA AETNA AETNA AETNA AETNA Member Subscriber Plan / Payer (Ef fective 2014-) Name:Yasmine Diaz Relation to Subscriber:Self Name:YASMINE DIAZ Payer ID:1 (NAIC) Type:Medicare-Managed Care Address: [facility] [id number] [place] [phone] AETNA Member Subscriber Plan / Payer (Ef fective 2014-) Name:Yasmine Diaz Relation to Subscriber:Self Name:YASMINE DIAZ Payer ID:1 (NAIC) Type:Medicare-Pagar.me Care Address: [facility] [id number] [place] [phone] AETNA Member Subscriber Plan / Payer (Ef fective 2014-) Name:Yasmine Diaz Relation to Subscriber:Self Name:YASMINE DIAZ Payer ID:1 (NAIC) Type:Medicare-Managed Care Address: [facility] [phone] [place] [phone] AETNA Member Subscriber Plan / Payer (Ef fective 2014-) Name:Yasmine Diaz Relation to Subscriber:Self Name:YASMINE DIAZ Payer ID:1 (NAIC) Type:Medicare-Managed Care Address: [facility] [id number] [place] [phone] AETNA AETNA AETNA AETNA [place] [address] AETNA Member Subscriber Plan / Payer (Ef fective 2014-) Name:Yasmine Diaz Relation to Subscriber:Self Name:YASMINE DIAZ Payer ID:1 (NAIC) Type:Medicare-Managed Care Address: [place] [phone] AETNA Member Subscriber Plan / Payer (Ef fective 2014-) Name:Yasmine Diaz Relation to Subscriber:Self Name:YAMSINE DIAZ Payer ID:1 (NAIC) Type:Medicare-BIlprospekt Address: [facility] [id number] [place] [phone] AETNA AETNA AETNA Member Subscriber Plan / Payer (Ef fective 2014-) Name:Yasmine Diaz Relation to Subscriber:Self Name:YASMINE DIAZ Payer ID:1 (NAIC) Type:Medicare-Managed Care Address: [facility] [phone] [place] [phone] AETNA Member Subscriber Plan / Payer ( fective 2014-Present) Name:Yasmine Diaz Relation to Subscriber:Self Name:YASMINE DIAZ Payer ID:1 (NAIC) Type:Medicare-Pagar.me Care Address: [facility] [id number] [place] [phone] AETNA Member Subscriber Plan / Payer ( fective 2014-) Name:Yasmine Diaz Relation to Subscriber:Self Name:YASMINE DIAZ Payer ID:1 (NAIC) Type:Medicare-Pagar.me Care Address: [facility] [phone] [place] [phone] AETNA Member Subscriber Plan / Payer ( fective 2014-Present) Name:Yasmine Diaz Relation to Subscriber:Self Name:YASMINE DIAZ Payer ID:1 (NAIC) Type:Medicare-Managed Care Address: [facility] [phone] [place] [phone] AETNA AETNA AETNA AETNA AETNA AETNA [facility] Address: [facility] [id number] [place] [phone] AETNA AETNA AETNA AETNA Member Subscriber Plan / Payer ( fective 2014-) Name:Yasmine Diaz Relation to Subscriber:Self Name:YASMINE DIAZ Payer ID:1 (NAIC) Type:Medicare-Managed Care Address: [facility] [phone] [place] [phone] AETNA Member Subscriber Plan / Payer ( fective 2014-Present) Name:Yasmine Diaz Relation to Subscriber:Self Name:YASMINE DIAZ Payer ID:1 (NAIC) Type:Medicare-Managed Care Address: [facility] [id number] [place] [phone] AETNA Member Subscriber Plan / Payer ( fective 2014-) Name:Yasmine Diaz Relation to Subscriber:Self Name:YASMINE DIAZ Payer ID:1 (NAIC) Type:Medicare-Pagar.me Care Address: [facility] [id number] [place] [phone] AETNA Member Subscriber Plan / Payer ( fective 2014-Present) Name:Yasmine Diaz Relation to Subscriber:Self Name:YASMINE DIAZ Payer ID:1 (NAIC) Type:Medicare-Managed Care Address: [facility] [id number] [place] [phone] AETNA AETNA AETNA AETNA AETNA AETNA AETNA AETNA AETNA AETNA AETNA AETNA Care Teams Opener Verifier Packer [employer] Relationship Specialty Start Date End Date Gina Delacruz MD [address] [place] [phone] PCP - General 01/17/18
--- OUTSIDE RECORDS SUMMARY | 2025-06-24 12:43 | XMS_ITS | Encounter Summary ---
Author Organization [facility] Address [address] [place] [address] Care Team Providers Care Technical Programs Manager Name Role Phone Gina Delacruz MD Primary Care Provider [phone] Encounter Details Date Type Department Care Team ([facility] Contact Info) Description 09/07/2022 Telephone [facility] [address] [place] [address] Soham Acosta MD [address] [place] [address] [address] [place] [address] Social History Tobacco Use Types Packs/Day Years Used Date Smoking Tobacco: Never Smokeless Tobacco: Never Alcohol Use Standard Drinks/Week Comments Yes 0.8 (1 standard drink = 0.6 oz p ure alcohol) Comments No Sex and Gender Information Value Date Recorded Sex Assigned at Not on file Legal Sex Female 6:03 PM JIG INSPECTOR Gender Identity Not on file Sexual Orientation Not on file documented as of this encounter Plan of Treatment Upcoming Encounters Date Type Department Care Team ([facility] Contact Info) Description 09/07/2025 9:00 AM JIG INSPECTOR Testing Visit [facility] - ENT [address] [place] [phone] Ras Mcfarland, PhD [address] [place] [address] [address] [place] [address] 09/07/2025 9:45 AM JIG INSPECTOR Office Visit [facility] - ENT [address] [place] [phone] Soham Acosta MD [address] DE[place] [address] documented as of this encounter Visit Diagnoses Not on filedocumented in this encounter Care Teams Technical Programs Manager Relationship Specialty Start Date End Date Gina Delacruz MD [address] [place] [phone] PCP - General 01/17/18 documented as of this encounter
--- OUTSIDE RECORDS SUMMARY | 2025-06-24 12:43 | XMS_ITS | Encounter Summary ---
Author Organization [facility] Address [address] [place] [address] Care Team Providers Care Fulfillment Representative Name Role Phone Gina Delacruz MD Primary Care Provider [phone] Encounter Details Date Type Department Care Team (Late st Contact Info) Description 01/24/2023 Telephone [facility] [address] [facility], [address] [place] [address] Soham Acosta MD [address] [place] [address] [place] [address] Social History Tobacco Use Types Packs/Day Years Used Date Smoking Tobacco: Never Smokeless Tobacco: Never Alcohol Use Standard Drinks/Week Comments Yes 0.8 (1 standard drink = 0.6 oz p ure alcohol) Comments No Sex and Gender Information Value Date Recorded Sex Assigned at Not on file Legal Sex Female 6:03 PM RENDERER Gender Identity Not on file Sexual Orientation Not on file documented as of this encounter Miscellaneous Notes * Telephone Encounter - Sania Barraza - 01/24/2023 11:12 AM CDT Spoke with patient's daughter, Cinthya. Patient's daughter is unsure of exact timeline of hearing lossbut guesses about two weeks. Patient began taking steroid (medication info listed below) where she will finish steroid taper by January 30. Patient has not noticed any improvement with right ear hearing. Patient reports not a drastic hearing loss but significant. Patient not currently doing any ear drops or taking any other medications. Patient scheduled to f/u on 02/[address] Acosta and hearing test. predniSONE (Deltasone) 10 MG tablet 64 tablet 1 09/07/2022 No Sig: Take 6 tabs for 4 days, 4 for 4 days, 3 for 4 days, 2 for 4 days and 1 for 4 days documented in this encounter Plan of Treatment Upcoming Encounters Date Type Department Care Team (Late st Contact Info) Description 09/07/2025 9:00 AM RENDERER Testing Visit [facility] - ENT [address] [place] [phone] Ras Mcfarland, PhD [address] [place] [address] [place] [address] 09/07/2025 9:45 AM RENDERER Office Visit [facility] - ENT [address] [place] [phone] Soham Acosta MD [address] [place] [address] [place] [address] documented as of this encounter Visit Diagnoses Not on filedocumented in this encounter Care Teams Fulfillment Representative Relationship Specialty Start Date End Date Gina Delacruz MD [address] [place] [phone] PCP - General 01/17/18 documented as of this encounter
--- OUTSIDE RECORDS SUMMARY | 2025-06-24 12:43 | XMS_ITS | Encounter Summary ---
Author Organization [facility] Address [address] [place] [address] Care Team Providers Care Community Services Coordinator Name Role Phone Gina Delacruz MD Primary Care Provider + Leighton Ramirez MD Unavailable [phone] Le Mendoza MD Unavailable [phone] Encounter Details Date Type Department Care Team (Late st Contact Info) Description 04/27/2025 Documentation [facility] [address] [place] [address] Rabia Hogan, RN Social History Tobacco Use Types Packs/Day Years Used Date Smoking Tobacco: Never Smokeless Tobacco: Never Alcohol Use Standard Drinks/Week Comments Yes 0 (1 standard drink = 0.6 oz pur e alcohol) Personal Safety Answer Date Recorded Have you ever been in or are you currently in a harmful physical or emotional relationship or is someone making you feel afraid or unsafe? Denies 04/28/2025 Comments No Sex and Gender Information Value Date Recorded Sex Assigned at Not on file Legal Sex Female 1:39 AM STRINGED INSTRUMENT REPAIRER Gender Identity Not on file Sexual Orientation Not on file documented as of this encounter Plan of Treatment Not on file documented as of this encounter Visit Diagnoses Not on filedocumented in this encounter Care Teams Community Services Coordinator Relationship Specialty Start Date End Date Gina Delacruz MD PCP - General Family Medicine 04/11/18 Leighton Ramirez MD [address] [place] [address] Consulting Physician Cardiothoracic Surgery 11/13/23 Le Mendoza MD [address] [facility] [address] [place] [address] Referring Physician Interventional Cardiology 11/14/23 documented as of this encounter
--- OUTSIDE RECORDS SUMMARY | 2025-06-24 12:43 | XMS_ITS ---
Author Organization [facility] 2 Address [address] [facility] [place] [address] Care Team Providers Care Construction Trades Contractor Name Role Phone Gina Delacruz MD Primary Care Provider + Leighton Ramirez MD Unavailable [phone] Le Mendoza MD Unavailable [phone] Active Problems Problem Noted Date Diagnosed Date [...] 12:58 PM CDT): PCO referral from Dr. Rizvi Plan for bilateral YAG Follow 4 weeks, sooner [...] state 02/07/2014 Overview (12/27/2016): Hx of lumpectomy Current Treatment and Therapy Plans No current plan information found. Past Treatment and Therapy Plans No past plan information found. Radiation Treatments * Course MOBAP_MQ 09/01/2017 - 09/01/2017 Treatment Period Energy Fraction Dose Fractions Total Dose Plans Planned RT BREAST 09/01/2017 - 09/01/2017 180 28 / 5,040 boost 09/01/2017 - 09/01/2017 200 5 / 1,000 Reference Points Delivered MQ_RT BREAST 09/01/2017 - 09/01/2017 5,040 MQ_boost 09/01/2017 - 09/01/2017 1,000 Lifetime Dose Tracking * Chemical Lifetime Dose Automatic Entry Manual Entr y Fluoro Time 9.7 minutes 0 minutes 9.7 minutes Air kerma at the reference point (Ka,r) 281.14 mGy 0 mGy 281.14 mGy DAP 39.22 Gy-cm2 0 Gy-cm2 39.22 Gy-cm2 Resolved Problems Problem Noted Date Diagnosed Date Resolved Date Aortic stenosis 12/20/2023 06/09/2024
--- OUTSIDE RECORDS SUMMARY | 2025-06-24 12:43 | XMS_ITS | Encounter Summary ---
Author Organization [facility] Address [address] [place] [address] Care Team Providers Care Truck Rental Service Attendant Name Role Phone Gina Delacruz MD Primary Care Provider [phone] Encounter Details Date Type Department Care Team (Latest Contact Info) Description 05/03/2006 Outpatient Historical [facility] Conversion, History Disorder of Bone and Cartilage, Unspecified (Primary Dx) Social History Tobacco Use Types Packs/Day Years Used Date Smoking Tobacco: Never Assessed Comments Unknown Sex and Gender Information Value Date Recorded Sex Assigned at Not on file Legal Sex Female 4:11 AM EXTENSION SERVICE ADVISOR Gender Identity Not on file Sexual Orientation Not on file documented as of this encounter Plan of Treatment Upcoming Encounters Date Type Department Care Team (Late st Contact Info) Description 07/27/2025 11:30 AM EXTENSION SERVICE ADVISOR Appointment [facility] [place] A [address] [place] [address] Marry Morrison AU.D [address] [place] [address] documented as of this encounter Visit Diagnoses Diagnosis Disorder of bone and cartilage, unspecified- Primary documented in this encounter Care Teams Truck Rental Service Attendant Relationship Specialty Start Date End Date Gina Delacruz MD PCP - General Family Practice 08/16/12 documented as of this encounter
--- OUTSIDE RECORDS SUMMARY | 2025-06-24 12:43 | XMS_ITS | Encounter Summary ---
Author Organization [facility] Address [address] [place] [address] Care Team Providers Care Loading Machine Operator Helper Name Role Phone Gina Delacruz MD Primary Care Provider [phone] Encounter Details Date Type Department Care Team (Late Contact Info) Description 08/13/2018 Lab Requisition [facility] Care DermPath Lab [address] [place] [phone] Denise Elkins MD [address] [place] [address] [address] [place] [address] Social History Tobacco Use Types Packs/Day Years Used Date Smoking Tobacco: Never Smokeless Tobacco: Never Alcohol Use Standard Drinks/Week Comments Yes 0.8 (1 standard drink = 0.6 oz p ure alcohol) Comments Unknown Sex and Gender Information Value Date Recorded Sex Assigned at Not on file Legal Sex Female 6:03 PM FIRESTOPPER TECHNICIAN Gender Identity Not on file Sexual Orientation Not on file documented as of this encounter Plan of Treatment Upcoming Encounters Date Type Department Care Team ([facility] Contact Info) Description 09/07/2025 9:00 AM FIRESTOPPER TECHNICIAN Testing Visit [facility] - ENT [address] [place] [phone] Ras Mcfarland, PhD [address] [place] [address] [address] [facility] [place] [address] 09/07/2025 9:45 AM FIRESTOPPER TECHNICIAN Office Visit [facility] [address] [place] [phone] Soham Acosta MD [address] [place] [address] documented as of this encounter Procedures Procedure Name Priority Date/Time Associated Diagnosis Comments DERMATOPATH TECHNICAL REPORT Routine 08/09/2018 12:00 AM FIRESTOPPER TECHNICIAN documented in this encounter Results * DERMATOPATH TECHNICAL REPORT (08/09/2018 12:00 AM FIRESTOPPER TECHNICIAN) Case Report Dermatopathology Report Case: [id number] Authorizing Provider: Denise Elkins MD Collected: 08/09/2018 12:00 AM Pathologist: Daja Evans MD Received: 08/13/2018 06:45 AM Specimen: Skin, left lower liip 12:16 PM [facility] DERMATOPATHOLOGY LABORATORY Addendum 1 At the request of the diagnosing physician, the technical component for MART-1/Melan A was performed by [facility] Dermatopathology Laboratory. 12:16 PM [facility] DERMATOPATHOLOGY LABORATORY Addendum electronically signed by Daja Evans MD on 08/19/2018 at 1216 FIRESTOPPER TECHNICIAN Clinical History MM vs lentigo.Check margins 12:16 PM [facility] DERMATOPATHOLOGY LABORATORY Gross Description Specimen A: Received is one formalin filled container labeled with the patient's name and designated left lower liip. The specimen consists of a shave biopsy measuring 5x2x1 mm, inked. Jar 0. [facility] Dermatopathology Laboratory performed the technical component only. 12:16 PM [facility] DERMATOPATHOLOGY LABORATORY Embedded Images 12:16 PM [facility] DERMATOPATHOLOGY LABORATORY DISCLAIMER An external and internal positive and negative controls are appropriate for the histochemical, immunohistochemical and immunofluorescence stain(s) in this case (if any), except where stated explicitly. The performance characteristics of the stain(s) cited in this report were developed and its performance characteristic determined by the Dermatopathology Laboratory at [facility]. These tests need not be, and therefore are not, approved by the [place] Food and Drug Administration. The tests are used for clinical purposes. 12:16 PM [facility] DERMATOPATHOLOGY LABORATORY at 1328 FIRESTOPPER TECHNICIAN Pathology/Cytolog y TISSUE SPECIMEN FROM SKIN / Unknown 08/09/2018 08/13/2018 6:45 AM FIRESTOPPER TECHNICIAN Denise Elkins MD LAB - PATHOLOGY/CYTOLOGY OR DERABLES Edited Result - Final DERMATOPATHOLOGY LABORATORY [facility] - Department of Dermatology [address] [place] [address] 5th Floor Lab [address] [phone] documented in this encounter Visit Diagnoses Not on filedocumented in this encounter Care Teams Loading Machine Operator Helper Relationship Specialty Start Date End Date Gina Delacruz MD [address] [place] [address] PCP - General 01/17/18 documented as of this encounter
[2025-06-24 12:48] VITALS: BP 142/70; PULSE 100; RESP 18; TEMP 36.9; O2SAT 98
--- OUTSIDE RECORDS SUMMARY | 2025-06-24 13:24 | XMS_ITS | Encounter Summary ---
Author Organization [facility] Address [address] [place] [address] Care Team Providers Care Environmental Consultant Name Role Phone Gina Delacruz MD Primary Care Provider [phone] Encounter Details Date Type Department Care Team (Late Contact Info) Description 08/13/2018 Lab Requisition [facility] Care DermPath Lab [address] [place] [phone] Denise Elkins MD [address] [place] [address] [address] [place] [address] Social History Tobacco Use Types Packs/Day Years Used Date Smoking Tobacco: Never Smokeless Tobacco: Never Alcohol Use Standard Drinks/Week Comments Yes 0.8 (1 standard drink = 0.6 oz p ure alcohol) Comments Unknown Sex and Gender Information Value Date Recorded Sex Assigned at Not on file Legal Sex Female 6:03 PM HOSPITAL HOUSEKEEPER Gender Identity Not on file Sexual Orientation Not on file documented as of this encounter Plan of Treatment Upcoming Encounters Date Type Department Care Team ([facility] Contact Info) Description 09/07/2025 9:00 AM HOSPITAL HOUSEKEEPER Testing Visit [facility] [address] [place] [phone] Ras Mcfarland, PhD [address] [place] [address] [address] [facility] [place] [address] 09/07/2025 9:45 AM HOSPITAL HOUSEKEEPER Office Visit [facility] [address] [place] [phone] Soham Acosta MD [address] DEPT [place] [address] documented as of this encounter Procedures Procedure Name Priority Date/Time Associated Diagnosis Comments DERMATOPATH TECHNICAL REPORT Routine 08/09/2018 12:00 AM HOSPITAL HOUSEKEEPER documented in this encounter Results * DERMATOPATH TECHNICAL REPORT (08/09/2018 12:00 AM HOSPITAL HOUSEKEEPER) Case Report Dermatopathology Report Case: [id number] Authorizing Provider: Denise Elkins MD Collected: 08/09/2018 12:00 AM Pathologist: Daja Evans MD Received: 08/13/2018 06:45 AM Specimen: Skin, left lower liip 12:16 PM [facility] DERMATOPATHOLOGY LABORATORY Addendum 1 At the request of the diagnosing physician, the technical component for MART-1/Melan A was performed by [facility] Dermatopathology Laboratory. 12:16 PM [facility] DERMATOPATHOLOGY LABORATORY Addendum electronically signed by Daja Evans MD on 08/19/2018 at 1216 HOSPITAL HOUSEKEEPER Clinical History MM vs lentigo.Check margins 12:16 PM [facility] DERMATOPATHOLOGY LABORATORY Gross Description Specimen A: Received is one formalin filled container labeled with the patient's name and designated left lower liip. The specimen consists of a shave biopsy measuring 5x2x1 mm, inked. Jar 0. [facility] Dermatopathology Laboratory performed the technical component only. 12:16 PM [facility] DERMATOPATHOLOGY LABORATORY Embedded Images 12:16 PM [facility] DERMATOPATHOLOGY LABORATORY DISCLAIMER An external and internal positive and negative controls are appropriate for the histochemical, immunohistochemical and immunofluorescence stain(s) in this case (if any), except where stated explicitly. The performance characteristics of the stain(s) cited in this report were developed and its performance characteristic determined by the Dermatopathology Laboratory at [facility]. These tests need not be, and therefore are not, approved by the [place] Food and Drug Administration. The tests are used for clinical purposes. 12:16 PM [facility] DERMATOPATHOLOGY LABORATORY at [address] HOSPITAL HOUSEKEEPER Pathology/Cytolog y TISSUE SPECIMEN FROM SKIN / Unknown 08/09/2018 08/13/2018 6:45 AM HOSPITAL HOUSEKEEPER Denise Elkins MD LAB - PATHOLOGY/CYTOLOGY OR DERABLES Edited Result - Final DERMATOPATHOLOGY LABORATORY [facility] - Department of Dermatology [address] [place] [address] 5th Floor Lab [address] [phone] documented in this encounter Visit Diagnoses Not on filedocumented in this encounter Care Teams Environmental Consultant Relationship Specialty Start Date End Date Gina Delacruz MD [address] [place] [address] PCP - General 01/17/18 documented as of this encounter
--- OUTSIDE RECORDS SUMMARY | 2025-06-24 13:24 | XMS_ITS | Clinical Summary ---
Author Organization [facility] 2 Address [address] [facility] [place] [address] Care Team Providers Care Command And Control Officer Name Role Phone Gina Delacruz MD Primary Care Provider + Leighton Ramirez MD Unavailable [phone] Le Mendoza MD Unavailable [phone] Allergies Active Allergy Reactions Criticality Noted Date [...] Department Care Team Description 06/20/2025 Orders Only [facility] Cardiology [address] [place] [address] Stanford Senior MD PhD 06/05/2025 8:40 AM CDT - 06/05/2025 9:45 AM CDT Surgery [facility] [address] [address] Jeffrey Cotton MD Intracardiac Echo Primary Procedure 06/05/2025 7:23 AM CDT - 06/05/2025 4:15 PM CDT Hospital Encounter [facility] [address] [address] Jeffrey Cotton MD Nonrheumatic aortic valve stenosis Discharge Disposition: Discharge to home or self care 04/28/2025 8:05 AM CDT Anesthesia Event [facility] [address] [address] Buddy Gordillo MD 04/28/2025 6:46 AM CDT - 04/28/2025 11:59 PM CDT Hospital Encounter [facility] [address] [place] [address] Bronson Fulton MD Nonrheumatic aortic valve stenosis (Primary Dx) Discharge Disposition: Discharge to home or self care 04/28/2025 Telephone [facility] Cardiology [address] [place] [address] Bronson Fulton MD sched ICE 04/27/2025 Documentation [facility] [address] [place] [address] Rabia Hogan, EFE from Last 3 [...] Primary Procedure; Surgeon: Jeffrey Cotton MD; Location: [facility]; Service: Cardiovascular; Laterality: N/A; Medical devices from [...] on file Legal Sex Female 1:39 AM WATER RIGHTS SPECIALIST Gender Identity Not on file Sexual Orientation [...] 01/22, 06/24/2014 Medical Devices Implanted Type Area Effervescent Salts Compounder Device Identifier Shelf Expiration Date Model / Serial / Lot Frank [employer] Valve Heart 20mm Gary 3 Transcatheter [id number] - [id number] - [id number] Implanted:Qty: 1 on 12/20/2023 by Jeffrey Cotton MD at [facility] Prosthetic Valve N/A: Aortic Valve Frank [employer] 07/30/2026 [id number] / [id number] / [id number] [employer] Device Vascular Closure Femoral Artery Bioabsorbable Dual Method Vascade 6-7fr Collagen [id number] - S0 - [id number] Implanted:Qty: 1 on 11/13/2023 by Jeffrey Cotton MD at [facility] Vascular Closure Device Right: Femoral Vein [employer] 06/28/2025 [id number] / 0 / [id number] Cordis Mynxgrip 5fr Balloon Catheter Integrate Sealant Lock Latex Free [id number] - S0 - [id number] Implanted:Qty: 1 on 11/13/2023 by Jeffrey Cotton MD at [facility] Vascular Closure Device Right: Femoral Cordis 09/23/2025 [id number] / [id number] / [id number] Teleflex [employer] 18f Manta Vascular Closure Device 2115 - [id number] - [id number] Implanted:Qty: 1 on 12/20/2023 by Jeffrey Cotton MD at [facility] Vascular Closure Device N/A: Aortic Valve [employer] Inc 01/01/20255 / [id number] / [id number] [employer] Device 5fr Closure Celt Acd Vascular Sterile Latex Free Disposable Bryce Kclt-05 - [id number] - [id number] Implanted:Qty: 1 on 12/20/2023 by Jeffrey Cotton MD at [facility] Vascular Closure Device N/A: Aortic Valve [employer]TD 06/27/2026 KCLT-05 / [id number] / [id number] Bourne Vascular System Closure Repair Femoral Artery Suture Mediated Perclose Prostyle [id number] - S0 - [id number] Implanted:Qty: 1 on 06/05/2025 by Jeffrey Cotton MD at [facility] Vascular Closure Device Right: Femoral [employer]ne V[employer] 04/23/2027 [id number] / [id number] / [id number] Procedures Procedure Name Priority Date/Time Associated Diagnosis [...] from the original result were not included. [facility] Cardiology [facility] [facility], [address], [address] Intracardiac Echocardiogram Procedure Report 89 y.o. year [...] MD LAB BLOOD ORDERABLES Final Resul t [facility] [address] Department [place] [address] * (ABNORMAL) Differential, auto (06/05/2025 7:47 AM CDT) Pathologist [facility] Neutrophil abs 3.47 1.50 - 6.50 K/cumm Imm gran abs 0.02 0.00 - 0.10 K/cumm [facility] Lymphocyte abs 0.77(L) 0.80 - 3.30 K/cumm [facility] Monocyte abs 0.47 0.20 - 0.80 K/cumm [facility] Eosinophil abs 0.14 0.00 - 0.50 K/cumm [facility] Basophil abs 0.07 0.00 - 0.10 K/cumm [facility] Neutrophil pct 70.3 % [facility] Comment: Interpretive Data Percent cell count reference ranges are not reported, since discordance with absolute values may lead to misinterpretation of CBC data. Current Interpretive Data was last revised on 2018. Imm gran pct 0.4 % [facility] Comment: Interpretive Data Percent cell count reference ranges are not reported, since discordance with absolute values may lead to misinterpretation of CBC data. Current Interpretive Data was last revised on 2018. Lymphocyte pct 15.6 % [facility] Comment: Interpretive Data Percent cell count reference ranges are not reported, since discordance with absolute values may lead to misinterpretation of CBC data. Current Interpretive Data was last revised on 2018. Monocyte pct 9.5 % [facility] Comment: Interpretive Data Percent cell count reference ranges are not reported, since discordance with absolute values may lead to misinterpretation of CBC data. Current Interpretive Data was last revised on 2018. Eosinophil pct 2.8 % [facility] Comment: Interpretive Data Percent cell count reference ranges are not reported, since discordance with absolute values may lead to misinterpretation of CBC data. Current Interpretive Data was last revised on 2018. Basophil pct 1.4 % [facility] Comment: Interpretive Data Percent cell count reference ranges are not reported, since discordance with absolute values may lead to misinterpretation of CBC data. Current Interpretive Data was last revised on 2018. Blood 06/05/2025 7:47 AM CDT 06/05/2025 7:57 AM CDT us Jeffrey Cotton MD LAB BLOOD ORDERABLES Final Resul t [facility] [address] Department [place] [address] * (ABNORMAL) CBC with auto differential (06/05/2025 7:47 AM CDT) WBC 4.94 3.80 - 9.90 K/cumm Hgb 13.5 11.9 - 15.5 g/dL [facility] Hct 42.8 35.6 - 45.5 % [facility] Plt 190 150 - 400 K/cumm [facility] MPV 11.2 9.1 - 12.[address] [facility] RBC 4.65 3.90 - 5.20 M/cumm [facility] MCV 92.0 81.3 - 96.[address] [facility] MCH 29.0 27.1 - 33.[address] [facility] MCHC 31.5(L) 32.3 - 35.7 g/dL [facility] RDW CV 13.2 11.1 - 14.9 % [facility] RDW SD 44.7 35.7 - 48.[address] [facility] NRBC abs 0.00 0.00 - 0.01 K/cumm [facility] Blood 06/05/2025 7:47 AM CDT 06/05/2025 7:57 AM CDT us Jeffrey Cotton MD LAB BLOOD ORDERABLES Final Resul t Performing Organization Address City/[facility] Co de Phone Number [facility] [address] Department [place] [address] * Protime-INR (06/05/2025 7:47 AM CDT) PT 11.4 10.2 - 13.5 sec INR 1.01 0.90 - 1.20 [facility] Comment: Interpretive data Oral anticoagulant therapeutic ranges: Venous thromboembolism prophylaxis or treatment: 2.0-3.0 CARDIOLOGY Standard range: 2.0-3.0 High-intensity range: 2.5-3.5 Refer to indication-specific guidelines for appropriate target ranges for prosthetic heart valve replacement. Current interpretive data was last revised on 2019. Blood 06/05/2025 7:47 AM CDT 06/05/2025 7:57 AM CDT us Jeffrey Cotton MD LAB BLOOD ORDERABLES Final Resul t Performing Organization Address City/[facility]/ZIP Co de Phone Number [facility] [address] Department [place] [address] * Basic metabolic panel (06/05/2025 7:47 AM CDT) Sodium 141 135 - 145 mmol/L Potassium, pl 3.8 3.3 - 4.9 mmol/L [facility] Chloride 104 97 - 110 mmol/L [facility] CO2 24 22 - 32 mmol/L [facility] Anion gap 13 2 - 15 mmol/L [facility] BUN 21 6 - 25 mg/dL [facility] Creatinine 0.65 0.60 - 1.10 mg/dL [facility] Glucose 97 70 - 199 mg/dL [facility] Comment: Interpretive Data Fasting glucose >/= 126 [...] 2022. Calcium 10.0 8.5 - 10.3 mg/dL [facility] Blood 06/05/2025 7:47 AM CDT 06/05/2025 7:57 AM CDT Jeffrey Cotton MD LAB BLOOD ORDERABLES [facility] [address] [place] [address] * TRANSESOPHAGEAL ECHO (LAILA) W DOPPLER/CF W [...] 04/16/2013 1:21 PM CDT Bone mineral density [facility] Clinical History: Postmenopausal female currently taking calcium and vitamin D. DXA BMD was done at [facility] on a [employer] CI. Precision testing at this site has [...] MD Rhonda - 01/17/2017 Bone mineral density [facility] Clinical History: Postmenopausal female currently taking calcium and vitamin D. DXA BMD was done at [facility] on a [employer] CI. Precision testing at this site has [...] Advance Directives For more information, please contact: [phone] * Full Code (Latest Code Status on File) Date Activated Date Inactivated Comments 12/20/2023 8:12 AM 12/21/2023 8:12 PM * Full Code Date Activated Date Inactivated Comments 11/13/2023 12:01 PM 11/13/2023 7:23 PM Healthcare Agents on File Name Relationship Healthcare Agent Relationship Communication Cinthya Bowden Daughter Health Care Agent Care Teams Command And Control Officer Relationship Specialty Start Date End Date Gina Delacruz MD PCP - General Family Medicine 04/11/18 Leighton Ramirez MD [address] [place] [address] Consulting Physician Cardiothoracic Surgery 11/13/23 Le Mendoza MD [address] [place] [address] Referring Physician Interventional Cardiology 11/14/23
--- OUTSIDE RECORDS SUMMARY | 2025-06-24 13:24 | XMS_ITS | Encounter Summary ---
Author Organization [facility] Address [address] [place] [address] Care Team Providers Care Qualitative Field Project Manager Name Role Phone Gina Delacruz MD Primary Care Provider [phone] Encounter Details Date Type Department Care Team (Latest Contact Info) Description 05/03/2006 Outpatient Historical [facility] Conversion, History Disorder of Bone and Cartilage, Unspecified (Primary Dx) Social History Tobacco Use Types Packs/Day Years Used Date Smoking Tobacco: Never Assessed Comments Unknown Sex and Gender Information Value Date Recorded Sex Assigned at Not on file Legal Sex Female 4:11 AM DISPOSAL WORKER Gender Identity Not on file Sexual Orientation Not on file documented as of this encounter Plan of Treatment Upcoming Encounters Date Type Department Care Team (Late st Contact Info) Description 07/27/2025 11:30 AM DISPOSAL WORKER Appointment [facility] Audiology Medical [place] A [address] [place] [address] Marry Morrison AU.D [address] [place] [address] documented as of this encounter Visit Diagnoses Diagnosis Disorder of bone and cartilage, unspecified- Primary documented in this encounter Care Teams Qualitative Field Project Manager Relationship Specialty Start Date End Date Gina Delacruz MD PCP - General Family Practice 08/16/12 documented as of this encounter
--- OUTSIDE RECORDS SUMMARY | 2025-06-24 13:24 | XMS_ITS | Encounter Summary ---
Author Organization [facility] Healthcare Address [address] [place] [address] Care Team Providers Care Sand Caster Apprentice Name Role Phone Gina Delacruz MD Primary Care Provider + Leighton Ramirez MD Unavailable [phone] Le Mendoza MD Unavailable [phone] Encounter Details Date Type Department Care Team (Late st Contact Info) Description 04/27/2025 Documentation [facility] [address] [place] [address] Rabia Hogan, RN Social History [...] on file Legal Sex Female 1:39 AM STICK PULLER Gender Identity Not on file Sexual Orientation Not on file documented as of this encounter Plan of Treatment Not on file documented as of this encounter Visit Diagnoses Not on filedocumented in this encounter Care Teams Sand Caster Apprentice Relationship Specialty Start Date End Date Gina Delacruz MD PCP - General Family Medicine 04/11/18 Leighton Ramirez MD [address] [place] [address] Consulting Physician Cardiothoracic Surgery 11/13/23 Le Mendoza MD [address] [facility] [address] [place] [address] Referring Physician Interventional Cardiology 11/14/23 documented as of this encounter
--- OUTSIDE RECORDS SUMMARY | 2025-06-24 13:24 | XMS_ITS ---
Author Organization [facility] 2 Address [address] [facility] [place] [address] Care Team Providers Care Sailor Name Role Phone Gina Delacruz MD Primary Care Provider + Leighton Ramirez MD Unavailable [phone] Le Mendoza MD Unavailable [phone] Active Problems Problem Noted Date Diagnosed Date [...]
--- OUTSIDE RECORDS SUMMARY | 2025-06-24 13:24 | XMS_ITS | Encounter Summary ---
Author Organization [facility] Address [address] [facility] [place] [address] Care Team Providers Care Configuration Manager Name Role Phone Gina Delacruz MD Primary Care Provider [phone] Encounter Details Date Type Department Care Team ([facility] Contact Info) Description 09/07/2022 Telephone [facility] [address] [place] [address] Soham cAosta MD [address] [place] [address] [address] [place] [address] Social History Tobacco Use Types Packs/Day Years Used Date Smoking Tobacco: Never Smokeless Tobacco: Never Alcohol Use Standard Drinks/Week Comments Yes 0.8 (1 standard drink = 0.6 oz p ure alcohol) Comments No Sex and Gender Information Value Date Recorded Sex Assigned at Not on file Legal Sex Female 6:03 PM GEOPHYSICS PROFESSOR Gender Identity Not on file Sexual Orientation Not on file documented as of this encounter Plan of Treatment Upcoming Encounters Date Type Department Care Team ([facility] Contact Info) Description 09/07/2025 9:00 AM GEOPHYSICS PROFESSOR Testing Visit [facility] - ENT [address] [place] [phone] Ras Mcfarland, PhD [address] [place] [address] [address] [place] [address] 09/07/2025 9:45 AM GEOPHYSICS PROFESSOR Office Visit [facility] - ENT [address] [place] [phone] Soham Acosta MD [address] [place] [address] documented as of this encounter Visit Diagnoses Not on filedocumented in this encounter Care Teams Configuration Manager Relationship Specialty Start Date End Date Gina Delacruz MD [address] [place] [address] PCP - General 01/17/18 documented as of this encounter
--- OUTSIDE RECORDS SUMMARY | 2025-06-24 13:24 | XMS_ITS | Clinical Summary ---
Author Organization [facility] Address [address] [place] [address] Phone Care Team Providers Care Asphalt Plant Worker Name Role Phone Gina Delacruz MD Primary Care Provider [phone] Active Problems No known active problems Encounters [...] on file Legal Sex Female 4:11 AM ANALYTICS MANAGER Gender Identity Not on file Sexual Orientation Not on file Plan of Treatment Upcoming Encounters Date Type Department Care Team (Late st Contact Info) Description 07/27/2025 11:30 AM ANALYTICS MANAGER Appointment [facility] Audiology [facility] [address] [facility] [place] [address] Marry Morrison AU.D [address] [place] [address] Health Maintenance Due Date Last [...] 06/24/2014 Insurance [employer] PPO MCR Care Teams Asphalt Plant Worker Relationship Specialty Start Date End Date Gina Delacruz MD PCP - General Family Practice 08/16/12
--- OUTSIDE RECORDS SUMMARY | 2025-06-24 13:24 | XMS_ITS | Clinical Summary ---
Author Organization [facility] Address [address] [facility] [place] [address] Care Team Providers Care Cloth Shrinking Machine Operator Name Role Phone Gina Delacruz MD Primary Care Provider [phone] Source Comments [facility],non-owned Affiliates and Associated Physician Practices is amultiple site organization consisting of ambulatory clinics and hospital sitesin [place], [place], [place] and [place]. This disclosure is being madepursuant to the Care Everywhere program and may not contain all information available regarding this patient. Last updated 18.[facility] Allergies Active Allergy Reactions Criticality Noted Date [...] 06/08/2025 10:00 AM CDT Office Visit [facility] - ENT [address] [place] [phone] Soham Acosta MD SNHL (sensory-neural hearing loss), asymmetrical (Primary Dx); Bilateral sensorineural hearing loss; Sensorineural hearing loss (SNHL) of both ears; Acoustic neuroma (HCC) 06/08/2025 9:30 AM CDT Testing Visit [facility] - ENT [address] [place] [phone] Ras Mcfarland, PhD SNHL (sensory-neural hearing loss), [...] on file Legal Sex Female 6:03 PM INSIDE PHONE SALES Gender Identity Not on file Sexual Orientation Not on file Last Filed Vital Signs Vital Sign Reading Time Taken Comments Blood Pressure 125/74 06/08/2025 9:28 AM CDT Pulse 70 06/08/2025 9:28 AM CDT Temperature 36.6 C (97.9 F) 03/04/2020 8:17 AM CDT Respiratory Rate - - Oxygen Saturation 96% 08/10/2023 9:52 AM INSIDE PHONE SALES Inhaled Oxygen Concentration - - Weight 62.2 kg (137 lb 3.2 oz) 06/08/2025 9:28 A M CDT Height 160 cm (5' 3) 06/08/2025 9:28 AM CDT Body Mass Index 24.3 06/08/2025 9:28 AM CDT Plan of Treatment Upcoming Encounters Date Type Department Care Team (Late st Contact Info) Description 09/07/2025 9:00 AM INSIDE PHONE SALES Testing Visit [facility] - ENT [address] [place] [phone] Ras Mcfarland, PhD [address] [place] [address] [place] [address] 09/07/2025 9:45 AM INSIDE PHONE SALES Office Visit [facility] - ENT [address] [place] [phone] Soham Acosta MD [address] [place] [address] [place] [address] Health Maintenance Due Date Last Done Comments [...] use of amplification. Ras Mcfarland, Ph.D., [facility] Service Support Representative, Director Division of Clinical Audiology Department of Otolaryngology- Head & Neck Surgery [facility] Ras Mcfarland PhD AUDIOLOGY [...] [place] [address] AETNA Member Subscriber Plan / Payer (Ef fective 2014-) Name:Yasmine Diaz Relation to Subscriber:Self Name:YASMINE DIAZ Payer ID:[id number] (NAIC) Type:Medicare-Managed Care Address: [place] [phone] AETNA AETNA AETNA AETNA AETNA AETNA AETNA AETNA AETNA AETNA AETNA AETNA AETNA Member Subscriber Plan / Payer (Ef fective 2014-) Name:Yasmine Diaz Relation to Subscriber:Self Name:YASMINE DIAZ Payer ID:[id number] (NAIC) Type:Medicare-[facility] Address: [facility] [id number] [place] [phone] AETNA AETNA AETNA AETNA AETNA AETNA AETNA AETNA AETNA AETNA AETNA AETNA AETNA AETNA AETNA AETNA AETNA AETNA AETNA Care Teams Cloth Shrinking Machine Operator Relationship Specialty Start Date End Date Gina Delacruz MD [address] [place] [phone] PCP - General 01/17/18
--- OUTSIDE RECORDS SUMMARY | 2025-06-24 13:24 | XMS_ITS | Encounter Summary ---
Author Organization [facility] Address [address] [place] [address] Care Team Providers Care Butane Compressor Operator Name Role Phone Gina Delacruz MD Primary Care Provider [phone] Encounter Details Date Type Department Care Team (Late st Contact Info) Description 01/24/2023 Telephone [facility] [address] [facility], [address] [place] [address] Soham Acosta MD [address] [place] [address] [place] [address] Social History Tobacco Use Types Packs/Day Years Used Date Smoking Tobacco: Never Smokeless Tobacco: Never Alcohol Use Standard Drinks/Week Comments Yes 0.8 (1 standard drink = 0.6 oz p ure alcohol) Comments No Sex and Gender Information Value Date Recorded Sex Assigned at Not on file Legal Sex Female 6:03 PM CINDER PITMAN Gender Identity Not on file Sexual Orientation [...] st Contact Info) Description 09/07/2025 9:00 AM CINDER PITMAN Testing Visit [facility] - ENT [address] [place] [phone] Ras Mcfarland, PhD [address] [place] [address] [place] [address] 09/07/2025 9:45 AM CINDER PITMAN Office Visit [facility] - [facility] [address] [place] [phone] Soham Acosta MD [address] [place] [address] [place] [address] documented as of this encounter Visit Diagnoses Not on filedocumented in this encounter Care Teams Butane Compressor Operator Relationship Specialty Start Date End Date Gina Delacruz MD [address] [place] [phone] PCP - General 01/17/18 documented as of this encounter
--- NOTE | 2025-06-24 13:43 | ED.GENADULT ---
HPI - General Adult General Chief complaint: Unspecified Stated complaint: Facial swelling/tingling-sent by Dr Kenna Delacruz Time Seen by Provider: 06/24/25 13:02 History of Present Illness HPI narrative: 89-year-old female presents to the emergency department for evaluation for left-sided facial swelling facial tingling with started on Sunday. Patient was started on antibiotics by her primary care physician. Patient took 1 dose on Sunday and has been taking 2 doses a day since then. Patient did have follow-up with her dentist and no dental caries or abscesses were identified on x-rays. Patient did have follow-up with primary care physician today and she was referred to the emergency department for additional imaging. Patient does have prior history of acoustic neuroma and they were concerned that this may be going on. Patient does describe left-sided lower mandibular swelling and tingling down the left side of her face. Related Data Home Medications ?Medication ?Instructions ?Recorded ?Confirmed ?Last Taken ?Type aspirin 81 mg chewable tablet PO 01/23/24 06/23/25 Unknown History Allergies Allergy/AdvReac Type Severity Reaction Status Date / Time house dust Allergy Unknown facial Verified 06/24/25 12:53 swelling raspberry Allergy Unknown Unknown Verified 06/24/25 12:53 Review of Systems Review of Systems: All systems reviewed & are unremarkable except as noted in HPI and below PMFSH Past Medical History Medical History Newly recognized murmur Aortic stenosis 9.1.22 valve area:1.12, peak gradient 35, ef 63% History of acoustic neuroma left/1989 Hearing loss Macular degeneration Abnormal mammogram of left breast Surgical History Surgical History S/P 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 Continue aspirin. Antibiotic prophylaxis prior to dental or surgical procedures History of surgery of head 1990ish L acoustic neuroma History of lung surgery (~2001) suspected cancer, path was benign History of hysterectomy (~2008) Status post breast lumpectomy (~2008) RIGHT Family History Family History Sibling Lupus erythematosus Father , age 100 No problems noted. Mother Family history of lung disease Lung fibrosis Other Family history of cardiovascular disease Hypertension Malignant neoplasm of prostate Social History Social History Smoking status: Never smoker Second hand tobacco smoke exposure: No Alcohol intake: current Substance use: never Substance use type: does not use Lack of Transportation: No Lack of Food: Never True Current Housing: I Have Housing Concerned About Future Housing: No Difficulty Paying Gas/Electric Bills: No Difficulty Paying for Meds: No Currently Unemployed: No Education: Bachelor's Degree Difficulty w/ Childcare or Family Care: No Exam Narrative: APPEARANCE: Well appearing, no pain, no distress, well-nourished. HEAD: normocephalic, atraumatic. EYES: PERRLA/EOMI, conjunctivae clear. NOSE: Normal no drainage EARS:TMS clear with good light reflex. THROAT: Pharynx clear, no exudate. NECK: Supple. No adenopathy, no masses. RESPIRATORY: Airway patent, respirations nonlabored. Clear to auscultation bilaterally, no rales, rhonchi, wheezing. CARDIOVASCULAR: Regular rate and rhythm without murmurs rubs or gallops. ABDOMINAL: Soft, nontender, nondistended, normal bowel sounds MUSCULOSKELETAL: Moves all extremities. Strength/ROM intact, No edema, No calf tenderness. NEURO: Alert. Cranial nerves II through XII intact. SKIN: Warm, dry. Normal Color Course Vital Signs Vital signs: Vital Signs Temperature 98.4 F 06/24/25 12:48 Pulse Rate 100 06/24/25 12:48 Respiratory Rate 18 06/24/25 12:48 Blood Pressure 142/70 H 06/24/25 12:48 Pulse Oximetry 98 06/24/25 12:48 Oxygen Delivery Room Air 06/24/25 12:48 Temperature 98.4 F 06/24/25 12:48 Pulse Rate 100 06/24/25 12:48 Respiratory Rate 18 06/24/25 12:48 Blood Pressure 142/70 H 06/24/25 12:48 Pulse Oximetry 98 06/24/25 12:48 Oxygen Delivery Room Air 06/24/25 12:48 Medical Decision Making MDM Narrative Medical decision making narrative: 89-year-old female presents emergency department for evaluation for left-sided facial pain. Patient is afebrile and leukocytosis hemoglobin of 13.2. No acute abnormalities on her CMP. Facial and head CT showed no etiology for the patient's symptoms. Differential Diagnosis Differential Diagnosis: Soak over time a couple subarachnoid hemorrhage, facial abscess, facial fracture, acoustic neuroma Vital Signs Vital Signs: Vital Signs Temperature 98.4 F 06/24/25 12:48 Pulse Rate 100 06/24/25 12:48 Respiratory Rate 18 06/24/25 12:48 Blood Pressure 142/70 H 06/24/25 12:48 Pulse Oximetry 98 06/24/25 12:48 Oxygen Delivery Room Air 06/24/25 12:48 Temperature 98.4 F 06/24/25 12:48 Pulse Rate 100 06/24/25 12:48 Respiratory Rate 18 06/24/25 12:48 Blood Pressure 142/70 H 06/24/25 12:48 Pulse Oximetry 98 06/24/25 12:48 Oxygen Delivery Room Air 06/24/25 12:48 Lab Data Lab results reviewed: Yes I reviewed the patient's lab results. 06/24/25 13:36 06/24/25 15:19 Labs: Lab Results 06/24/25 06/24/25 Range/Units 13:36 15:19 WBC 6.9 (4.5-10.0) K/mm3 RBC 4.53 (4.2-5.4) M/mm3 Hgb 13.2 (12.0-15.0) g/dL Hct 42.8 (37.0-47.0) % MCV 94.5 (80-100) fl MCH 29.1 (26-34) pg MCHC 30.8 L (32-36) g/dl RDW 13.0 (11.5-14.5) % Plt Count 200 (150-375) k/mm3 MPV 11.0 H (7.4-10.4) fl Immature Gran % (Auto) 0.4 (0-0.5) % Neut % (Auto) 83.7 H (45.5-73.1) % Lymph % (Auto) 8.0 L (18.3-44.2) % [place] % (Auto) 7.2 (2.6-8.5) % Eos % (Auto) 0.1 (0-4.4) % Baso % (Auto) 0.6 (0.2-1.2) % Lymph # (Auto) 0.55 L (0.9-3.2) K/mm3 [place] # (Auto) 0.5 (0.1-0.6) K/mm3 Eos # (Auto) 0.0 (0-0.3) K/mm3 Baso # (Auto) 0.0 (0.0-0.1) K/mm3 Abs Immat Gran (auto) 0.03 (0.00-0.031) K/mm3 Absolute Neuts (auto) 5.8 (1.3-6.7) K/mm3 Absolute Nucleated RBC 0.000 (0.0-0.012) K/mm3 Nucleated RBC % 0.0 (0.0-0.2) % Sodium 138 (137-145) mmol/L Potassium 4.9 (3.4-5.0) mmol/L Chloride 103 (98-107) mmol/L Carbon Dioxide 23 (22-30) mmol/L Anion Gap 12 (4-12) mmol/L BUN 13 (7-17) mg/dL Creatinine 0.70 0.80 (0.7-1.0) mg/dL Estim Creat Clear Calc 39 34 ml/min Estimated GFR > 60 > 60 (59 - ) Glucose 103 (65-110) mg/dL Calcium 9.6 (8.4-10.2) mg/dL Total Bilirubin 1.3 (0.2-1.3) mg/dL AST 30 (14-36) U/L ALT 18 (6-35) U/L Alkaline Phosphatase 57 (38-126) U/L Total Protein 7.5 (6.3-8.2) g/dL Albumin 4.6 (3.5-5.1) g/dL Imaging Data Radiologist's impression: Impressions Head CT 06/24/25 15:29 Impression: 1.No acute intracranial abnormality. Face CT 06/24/25 15:53 IMPRESSION: 1. Status post left mastoidectomy and bilateral intraocular lens replacement. Otherwise unremarkable maxillofacial CT. Discharge Plan Discharge Clinical Impression: Left facial pressure and pain Patient Disposition: Home Condition: Stable Instructions: Antibiotic Form Additional Instructions: Continue to have close follow-up with your primary care physician for additional outpatient testing. Patient Language: Austrian Prescriptions: No Action aspirin 81 mg tablet,chewable PO amlodipine 2.5 mg tablet 2.5 mg PO DAILY Qty: 90 3RF Follow-up/Referrals: Gina Delacruz MD [Primary Care Provider, Family Practice]
[2025-06-24 13:44] LABS: Hematocrit 42.8 % (37.0-47.0); Hemoglobin 13.2 g/dL (12.0-15.0); Immature Granulocyte Percent A 0.4 % (0-0.5); Lymphocytes Absolute Auto 0.55 K/mm3 (0.9-3.2); Mean Corpuscular HGB Conc 30.8 g/dl (32-36); Mean Corpuscular Hemoglobin 29.1 pg (26-34); Mean Corpuscular Volume 94.5 fl (80-100); Nucleated Red Blood Cells Absolute Auto 0.000 K/mm3 (0.0-0.012); Nucleated Red Blood Cells Perc 0.0 % (0.0-0.2); Platelet Count Result 200 k/mm3 (150-375); Red Blood Count 4.53 M/mm3 (4.2-5.4); White Blood Count 6.9 K/mm3 (4.5-10.0)
[2025-06-24 15:21] LABS: Estimated CRCL calculation 34 ml/min; Estimated Glomerular Filt Rate > 60
[2025-06-24 15:40] LABS: Alanine Aminotransferase 18 U/L (6-35); Albumin Level 4.6 g/dL (3.5-5.1); Alkaline Phosphatase 57 U/L (38-126); Anion Gap 12 mmol/L (4-12); Aspartate Amino Transferase 30 U/L (14-36); Bilirubin,Total 1.3 mg/dL (0.2-1.3); Blood Urea Nitrogen 13 mg/dL (7-17); Calcium 9.6 mg/dL (8.4-10.2); Carbon Dioxide 23 mmol/L (22-30); Chloride 103 mmol/L (98-107); Estimated CRCL calculation 39 ml/min; Estimated Glomerular Filt Rate > 60; Glucose 103 mg/dL (65-110); Potassium 4.9 mmol/L (3.4-5.0); Sodium 138 mmol/L (137-145); Total Protein 7.5 g/dL (6.3-8.2)
== END 2025-06-24 16:42 | disposition home or self-care (01) ==
PROVIDERS: Emergency Provider Emergency Medicine; PCP Family Medicine
DX: R51.9 Headache, unspecified (principal); I35.0 Nonrheumatic aortic (valve) stenosis; H35.30 Unspecified macular degeneration; Z95.2 Presence of prosthetic heart valve; Z90.710 Acquired absence of both cervix and uterus; Z79.82 Long term (current) use of aspirin; Z79.899 Other long term (current) drug therapy
CPT/HCPCS: 36415; 70450; 70487; 80053; 85025; 99284; Q9967